=== PATIENT | female | born 1975 | race Caucasian/White ===

== ENCOUNTER 2016-08-17 15:06 | Emergency (ER) | payer OTHER ==
[2016-08-17] MEDS ORDERED: methylPREDNISolone INJ 125 MG/2 ML VIAL (J2930) As Ordered ONE (15:35)
[2016-08-17] MEDS ORDERED: IPRATROPIUM 0.5MG/ALBUTEROL 2.5MG INH SOL UD 3ML (DUONEB)(J7620) As Ordered ONE (15:44)
--- NOTE | 2016-08-17 16:11 | REP ---
Clinical: Chest pain. COPD. . Comparison: 04/17/2016 . Technique: PA and lateral. Findings: The mediastinum and cardiac silhouette are normal. The lung simmons are clear and without acute consolidation, effusion, or pneumothorax. The skeletal structures are intact and normal. Impression: 1. No acute cardiopulmonary process. Signed by Armani Trammell MD 08/17/2016 04:03 P
--- NOTE | 2016-08-17 16:45 | EDDOCDS ---
Nurse's Notes [facility] Name: Alisson Beth Age: 40 yrs Sex: Female : 1975 Arrival Date: 08/17/2016 Time: 15:06 Bed PD Private MD: Diagnosis: Chronic obstructive pulmonary disease with (acute) exacerbation;Shortness of breath;Wheezing Presentation: 08/17 15:12 Red Flag criteria, patient assessed and is suitable to finish the RCE Process. srm 15:22 Presenting complaint: Patient states: she has COPD breathing difficulty since [facility] yesterday. Cough with thick clear phlegm. Adult Sepsis Screening: The patient does not have new or worsening altered mentation. Patient's respiratory rate is less than 22. Systolic blood pressure is greater than 100. Patient has a qSOFA score of 0- Negative Sepsis Screen. Suicide/Homicide risk assessment- the patient denies having any suicidal and/or homicidal ideations and does not present with any other emotional, behavioral or mental health complaints. Status: Patient is not a counseling services director or dependent. Transition of care: patient was not received from another setting of care. 15:22 Acuity: LUCIANA Level 3 [facility] 15:22 Method Of Arrival: Walkin/Carried/Asstd [facility] Triage Assessment: 15:25 General: Appears well nourished, Behavior is anxious. Pain: Location: back and neck [facility] Pain currently is 7 out of 10 on a pain scale. Pt Declines HIV testing. Neurological: Level of Consciousness is awake, alert. EENT: Reports nasal congestion. Respiratory: Onset: The symptoms/episode began/occurred yesterday, Airway is patent Respiratory effort is labored, Reports shortness of breath cough that is wheezing. Derm: Skin is dry, Skin is pale, Skin temperature is warm. 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 albuterol sulfate 90 mcg/actuation Inhl HFAA 2 puffs every 4 hours as needed (Last dose: 08/17/2016 14:25) - PMHx: COPD; - PSHx: none; - Social history: Smoking status: Patient states former smoker of tobacco. No barriers to communication noted, The patient speaks fluent Guyanese. - Family history: Not pertinent. - : The pt / caregiver states he / she is not on anticoagulants. Home medication list is obtained from the patient. - Exposure Risk Screening:: None identified. Screenin:41 Screening information is obtained from the patient. Fall risk: No risks identified. cj Assistance ADL's: requires no assistance with activities of daily living. Abuse/DV Screen: The patient / caregiver reports he/she is: not in a situation that causes fear, pain or injury. Nutritional screening: No deficits noted. Advance Directives: There is no active DNR order. home support is adequate. Assessment: 15:41 General: Appears in no apparent distress, Behavior is cooperative, pleasant. Pain: [facility] Denies pain. Neurological: Level of Consciousness is awake, alert, Oriented to person, place, time. Cardiovascular: Rhythm is regular Chest pain is denied. Respiratory: Airway is patent Respiratory effort is even, labored, Respiratory pattern is regular, symmetrical, Breath sounds with wheezes bilaterally. Derm: Skin is pink, warm & dry. 16:28 Respiratory: Breath sounds with wheezes expiratory bilaterally. srm 16:28 Respiratory: Parent/caregiver reports the patient having feeling much better after nebs.srm 16:43 Reassessment: Patient appears in no apparent distress at this time. Patient states srm feeling better. Patient states symptoms have improved. Vital Signs: 15:08 BP 134 / 82; Pulse 121; Resp 16; Temp 99.0(O); Pulse Ox 96% on R/A; Weight 81.65 kg lr2 (R); Height 5 ft. 5 in. (165.10 cm) (R); Pain 6/10; 16:43 BP 132 / 85; Pulse 86; Resp 18; Temp 99.2; Pulse Ox 95% ; srm 15:08 Body Mass Index 29.95 (81.65 kg, 165.10 cm) lr2 Vitals: 15:08 Log In Time: August 17, 2016 at 15:06. lr2 ED Course: 15:08 Patient visited by Adia Daniels. lr2 15:08 Patient moved to Waiting lr2 15:08 Patient moved to Pre RCE lr2 15:24 Triage Initiated kpj 15:27 Patient moved to Triage 3 kpj 15:28 [facility] dt4 15:28 Bassam Guevara MD is Attending Physician. dt4 15:28 Patient visited by Lucita Renteria PA-C. dt4 15:34 Patient moved to PD [facility] 15:41 The patient / caregiver is instructed regarding the plan of care and ED course. [facility] 15:55 [facility] Payment Agreement was scanned into [employer] and attached to record. lg 16:29 Patient visited by Ysabel Mtz RN. srm 16:34 Patient visited by Lucita Renteria PA-C. dt4 16:36 Javi Feliz is Referral Physician. dt4 16:36 [facility] is Referral Physician. dt4 16:43 No IV's were initiated during this patient's visit. No procedures done that require srm assistance. Administered Medications: 15:40 Drug: Albuterol-Ipratropium 1 neb [ipratropium-albuterol 0.5 mg-3 mg(2.5 mg base)/3 mL ac1 nebulization soln (1 neb)] Route: Nebulizer; 15:45 Follow up: [facility] 15:41 Drug: methylPREDNISolone Sodium Succinate 125 mg Route: IM; Site: right gluteus; [facility] 15:50 Drug: Albuterol-Ipratropium 1 neb [ipratropium-albuterol 0.5 mg-3 mg(2.5 mg base)/3 mL ac1 nebulization soln (1 neb)] Route: Nebulizer; 15:55 Follow up: [facility] 16:00 Drug: Albuterol-Ipratropium 1 neb [ipratropium-albuterol 0.5 mg-3 mg(2.5 mg base)/3 mL ac1 nebulization soln (1 neb)] Route: Nebulizer; 16:05 Follow up: [facility] ac Intake: Order Results: There are currently no results for this order. Outcome: 16:36 Discharge ordered by Provider. dt4 16:43 Discharge Assessment: Patient awake, alert and oriented x 3. No cognitive and/or srm functional deficits noted. Patient verbalized understanding of disposition instructions. patient administered narcotics - no. The following High Risk Discharge criteria are identified: None. Discharged to home ambulatory. Condition: good Condition: stable. Discharge instructions given to patient, Instructed on discharge instructions, follow up and referral plans. medication usage, Demonstrated understanding of instructions, medications, Pt was receptive of discharge instructions/ teaching. Prescriptions given X 2. No special radiology studies were completed. Property sent home with patient. 16:44 Patient left the ED. srm Signatures: Devika Dowling, RN RN Ysabel Thornton, RN RN Vero Ortiz, Reg Reg lg Emre,Wendy,RT RT ac1 Yoli Lawton RN RN Lucita Lopez PA-C PA-Federico dt4 Adia Dnaiels lr2 MTDD
--- NOTE | 2016-08-17 16:45 | EDDOCDS ---
Physician Documentation [facility] Name: Alisson Beth Age: 40 yrs Sex: Female : 1975 Arrival Date: 08/17/2016 Time: 15:06 Bed PD Private MD: Disposition: 08/17/16 16:36 Discharged to Home/Self Care. Impression: Chronic obstructive pulmonary disease with (acute) exacerbation, Shortness of breath, Wheezing. - Condition is Stable. - Discharge Instructions: Chronic Obstructive Pulmonary Disease, Shortness of Breath. - Prescriptions for Prednisone 20 mg Oral Tablet - take 3 tablets by ORAL route once daily for 4 days start on 08/18/16; 12 tablet. ipratropium- albuterol 0.5 mg-3 mg(2.5 mg base)/3 mL Inhalation Solution for Nebulization - inhale 1 ampule by INHALATION route 3-4 times daily As needed; 1 box. - Medication Reconciliation, Local Pharmacy Hours form. - Follow up: Emergency Department; When: As needed; Reason: Worsening of conditions. Follow up: Javi Feliz; When: Call to arrange an appointment; Reason: Wound/Symptom Recheck, Further diagnostic work-up, Recheck today's complaints, Continuance of care, To establish care. [facility]; When: Call to arrange an appointment; Reason: Recheck today's complaints, Continuance of care, To establish care. - Problem is new. - Symptoms have improved. Historical: - Allergies: No known drug Allergies; - Home Meds: 1. albuterol sulfate 90 mcg/actuation Inhl HFAA 2 puffs every 4 hours as needed (Last dose: 08/17/2016 14:25) - PMHx: COPD; - PSHx: none; - Social history: Smoking status: Patient states former smoker of tobacco. No barriers to communication noted, The patient speaks fluent Vietnamese. - Family history: Not pertinent. - : The pt / caregiver states he / she is not on anticoagulants. Home medication list is obtained from the patient. - Exposure Risk Screening:: None identified. CERT OCCUPATIONAL THERAPY ASST: 08/17 15:25 LMP 07/28/2016 [facility] Vital Signs: 15:08 BP 134 / 82; Pulse 121; Resp 16; Temp 99.0(O); Pulse Ox 96% on R/A; Weight 81.65 kg / lr2 180.01 lbs (R); Height 5 ft. 5 in. (165.10 cm) (R); Pain 6/10; 16:43 BP 132 / 85; Pulse 86; Resp 18; Temp 99.2; Pulse Ox 95% ; srm 15:08 Body Mass Index 29.95 (81.65 kg, 165.10 cm) lr2 MDM: 15:32 methylPREDNISolone Sodium Succinate 125 mg IM once ordered. dt4 15:32 Albuterol-Ipratropium 1 neb Nebulizer every 20 minutes x3 ordered. dt4 15:32 Call Respiratory ordered. dt4 15:39 Financial registration complete. ks16 15:40 Call Respiratory complete. [facility] 15:48 Chest, 2 View (pa\E\lat) Ordered. [facility] 15:55 [facility] Payment Agreement was scanned into [employer] and attached to record. lg Administered Medications: 15:40 Drug: Albuterol-Ipratropium 1 neb [ipratropium-albuterol 0.5 mg-3 mg(2.5 mg base)/3 mL ac1 nebulization soln (1 neb)] Route: Nebulizer; 15:45 Follow up: [facility] 15:41 Drug: methylPREDNISolone Sodium Succinate 125 mg Route: IM; Site: right gluteus; [facility] 15:50 Drug: Albuterol-Ipratropium 1 neb [ipratropium-albuterol 0.5 mg-3 mg(2.5 mg base)/3 mL ac1 nebulization soln (1 neb)] Route: Nebulizer; 15:55 Follow up: [facility] 16:00 Drug: Albuterol-Ipratropium 1 neb [ipratropium-albuterol 0.5 mg-3 mg(2.5 mg base)/3 mL ac1 nebulization soln (1 neb)] Route: Nebulizer; 16:05 Follow up: [facility] Signatures: Dispatcher [employer] EDIN Devika Dowling RN RN kpj Michelson, Staci, RN RN srm Ganter, LoriLee, Reg Reg lg Yoli Lawton RN RN [facility] Lucita Renteria PA-C PA-C dt4 Monica John, Reg Reg ks16 Wendy Andrea RT ac1 The chart was reviewed and I authenticate all verbal orders and agree with the evaluation and treatment provided.Attachments: 15:55 [facility] Payment Agreement lg MTDD
--- NOTE | 2016-08-19 17:45 | EDDOCDS ---
Physician Documentation [facility] Name: Alisson Beth Age: 40 yrs Sex: Female : 1975 Arrival Date: 08/17/2016 Time: 15:06 Bed PD Private MD: Disposition: 08/17/16 16:36 Discharged to Home/Self Care. Impression: Chronic obstructive pulmonary disease with (acute) exacerbation, Shortness of breath, Wheezing. - Condition is Stable. - Discharge Instructions: Chronic Obstructive Pulmonary Disease, Shortness of Breath. - Prescriptions for Prednisone 20 mg Oral Tablet - take 3 tablets by ORAL route once daily for 4 days start on 08/18/16; 12 tablet. ipratropium- albuterol 0.5 mg-3 mg(2.5 mg base)/3 mL Inhalation Solution for Nebulization - inhale 1 ampule by INHALATION route 3-4 times daily As needed; 1 box. - Medication Reconciliation, Local Pharmacy Hours form. - Follow up: Emergency Department; When: As needed; Reason: Worsening of conditions. Follow up: Javi Feliz; When: Call to arrange an appointment; Reason: Wound/Symptom Recheck, Further diagnostic work-up, Recheck today's complaints, Continuance of care, To establish care. [facility]; When: Call to arrange an appointment; Reason: Recheck today's complaints, Continuance of care, To establish care. - Problem is new. - Symptoms have improved. Historical: - Allergies: No known drug Allergies; - Home Meds: 1. albuterol sulfate 90 mcg/actuation Inhl HFAA 2 puffs every 4 hours as needed (Last dose: 08/17/2016 14:25) - PMHx: COPD; - PSHx: none; - Social history: Smoking status: Patient states former smoker of tobacco. No barriers to communication noted, The patient speaks fluent Pashto. - Family history: Not pertinent. - : The pt / caregiver states he / she is not on anticoagulants. Home medication list is obtained from the patient. - Exposure Risk Screening:: None identified. 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 5 in. (165.10 cm) (R); Pain 6/10; 16:43 BP 132 / 85; Pulse 86; Resp 18; Temp 99.2; Pulse Ox 95% ; srm 15:08 Body Mass Index 29.95 (81.65 kg, 165.10 cm) lr2 MDM: 15:32 methylPREDNISolone Sodium Succinate 125 mg IM once ordered. dt4 15:32 Albuterol-Ipratropium 1 neb Nebulizer every 20 minutes x3 ordered. dt4 15:32 Call Respiratory ordered. dt4 15:39 Financial registration complete. ks16 15:40 Call Respiratory complete. [facility] 15:48 Chest, 2 View (pa\E\lat) Ordered. [facility] 15:55 [facility] Payment Agreement was scanned into [employer] and attached to record. 21:38 T-Sheet-- Draft Copy was scanned into [employer] and attached to record. klr Administered Medications: 15:40 Drug: Albuterol-Ipratropium 1 neb [ipratropium-albuterol 0.5 mg-3 mg(2.5 mg base)/3 mL ac1 nebulization soln (1 neb)] Route: Nebulizer; 15:45 Follow up: [facility] 15:41 Drug: methylPREDNISolone Sodium Succinate 125 mg Route: IM; Site: right gluteus; [facility] 15:50 Drug: Albuterol-Ipratropium 1 neb [ipratropium-albuterol 0.5 mg-3 mg(2.5 mg base)/3 mL ac1 nebulization soln (1 neb)] Route: Nebulizer; 15:55 Follow up: [facility] 16:00 Drug: Albuterol-Ipratropium 1 neb [ipratropium-albuterol 0.5 mg-3 mg(2.5 mg base)/3 mL ac1 nebulization soln (1 neb)] Route: Nebulizer; 16:05 Follow up: [facility] Signatures: Dispatcher [employer] EDAR Devika Dowling RN RN kpj Michelson, Staci, RN RN srm Ganter, LoriLee, Feliz Reg lg Yoli Lawton RN RN Lucita Lopez PA-C PARochelle dt4 Monica John, Reg Reg ks16 Bella Caceres Amy RT ac1 The chart was reviewed and I authenticate all verbal orders and agree with the evaluation and treatment provided.Attachments: 15:55 [facility] Payment Agreement lg 21:38 T-Sheet-- Draft Copy klr Chart Complete MTDD
--- NOTE | 2016-08-19 17:45 | EDDOCDS ---
Physician Documentation [facility] Name: Alisson Beth Age: 40 yrs Sex: Female : 1975 Arrival Date: 08/17/2016 Time: 15:06 Bed PD Private MD: Disposition: 08/17/16 16:36 Discharged to Home/Self Care. Impression: Chronic obstructive pulmonary disease with (acute) exacerbation, Shortness of breath, Wheezing. - Condition is Stable. - Discharge Instructions: Chronic Obstructive Pulmonary Disease, Shortness of Breath. - Prescriptions for Prednisone 20 mg Oral Tablet - take 3 tablets by ORAL route once daily for 4 days start on 08/18/16; 12 tablet. ipratropium- albuterol 0.5 mg-3 mg(2.5 mg base)/3 mL Inhalation Solution for Nebulization - inhale 1 ampule by INHALATION route 3-4 times daily As needed; 1 box. - Medication Reconciliation, Local Pharmacy Hours form. - Follow up: Emergency Department; When: As needed; Reason: Worsening of conditions. Follow up: Javi Feliz; When: Call to arrange an appointment; Reason: Wound/Symptom Recheck, Further diagnostic work-up, Recheck today's complaints, Continuance of care, To establish care. [facility]; When: Call to arrange an appointment; Reason: Recheck today's complaints, Continuance of care, To establish care. - Problem is new. - Symptoms have improved. Historical: - Allergies: No known drug Allergies; - Home Meds: 1. albuterol sulfate 90 mcg/actuation Inhl HFAA 2 puffs every 4 hours as needed (Last dose: 08/17/2016 14:25) - PMHx: COPD; - PSHx: none; - Social history: Smoking status: Patient states former smoker of tobacco. No barriers to communication noted, The patient speaks fluent Armenian. - Family history: Not pertinent. - : The pt / caregiver states he / she is not on anticoagulants. Home medication list is obtained from the patient. - Exposure Risk Screening:: None identified. 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 5 in. (165.10 cm) (R); Pain 6/10; 16:43 BP 132 / 85; Pulse 86; Resp 18; Temp 99.2; Pulse Ox 95% ; srm 15:08 Body Mass Index 29.95 (81.65 kg, 165.10 cm) lr2 MDM: 15:32 methylPREDNISolone Sodium Succinate 125 mg IM once ordered. dt4 15:32 Albuterol-Ipratropium 1 neb Nebulizer every 20 minutes x3 ordered. dt4 15:32 Call Respiratory ordered. dt4 15:39 Financial registration complete. ks16 15:40 Call Respiratory complete. [facility] 15:48 Chest, 2 View (pa\E\lat) Ordered. [facility] 15:55 [facility] Payment Agreement was scanned into [employer] and attached to record. 21:38 T-Sheet-- Draft Copy was scanned into [employer] and attached to record. klr Administered Medications: 15:40 Drug: Albuterol-Ipratropium 1 neb [ipratropium-albuterol 0.5 mg-3 mg(2.5 mg base)/3 mL ac1 nebulization soln (1 neb)] Route: Nebulizer; 15:45 Follow up: [facility] 15:41 Drug: methylPREDNISolone Sodium Succinate 125 mg Route: IM; Site: right gluteus; [facility] 15:50 Drug: Albuterol-Ipratropium 1 neb [ipratropium-albuterol 0.5 mg-3 mg(2.5 mg base)/3 mL ac1 nebulization soln (1 neb)] Route: Nebulizer; 15:55 Follow up: [facility] 16:00 Drug: Albuterol-Ipratropium 1 neb [ipratropium-albuterol 0.5 mg-3 mg(2.5 mg base)/3 mL ac1 nebulization soln (1 neb)] Route: Nebulizer; 16:05 Follow up: [facility] Signatures: Dispatcher [employer] EDKY Devika Dowling RN RN kpj Michelson, Staci, RN RN srm Ganter, LoriLee, Feliz Reg lg Yoli Lawton RN RN Lucita Lopez PA-C PARochelle dt4 Monica John, Reg Reg ks16 Bella Caceres Amy RT ac1 The chart was reviewed and I authenticate all verbal orders and agree with the evaluation and treatment provided.Attachments: 15:55 [facility] Payment Agreement lg 21:38 T-Sheet-- Draft Copy klr Chart Complete MTDD
--- NOTE | 2016-08-19 17:45 | EDDOCDS ---
Nurse's Notes [facility] Name: Alisson Beth Age: 40 yrs Sex: Female : 1975 Arrival Date: 08/17/2016 Time: 15:06 Bed PD Private MD: Diagnosis: Chronic obstructive pulmonary disease with (acute) exacerbation;Shortness of breath;Wheezing Presentation: 08/17 15:12 Red Flag criteria, patient assessed and is suitable to finish the RCE Process. srm 15:22 Presenting complaint: Patient states: she has COPD breathing difficulty since [facility] yesterday. Cough with thick clear phlegm. Adult Sepsis Screening: The patient does not have new or worsening altered mentation. Patient's respiratory rate is less than 22. Systolic blood pressure is greater than 100. Patient has a qSOFA score of 0- Negative Sepsis Screen. Suicide/Homicide risk assessment- the patient denies having any suicidal and/or homicidal ideations and does not present with any other emotional, behavioral or mental health complaints. 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 Transition of care: patient was not received from another setting of care. 15:22 Acuity: LUCIANA Level 3 [facility] 15:22 Method Of Arrival: Walkin/Carried/Asstd [facility] Triage Assessment: 15:25 General: Appears well nourished, Behavior is anxious. Pain: Location: back and neck [facility] Pain currently is 7 out of 10 on a pain scale. Pt Declines HIV testing. Neurological: Level of Consciousness is awake, alert. EENT: Reports nasal congestion. Respiratory: Onset: The symptoms/episode began/occurred yesterday, Airway is patent Respiratory effort is labored, Reports shortness of breath cough that is wheezing. Derm: Skin is dry, Skin is pale, Skin temperature is warm. 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 albuterol sulfate 90 mcg/actuation Inhl HFAA 2 puffs every 4 hours as needed (Last dose: 08/17/2016 14:25) - PMHx: COPD; - PSHx: none; - Social history: Smoking status: Patient states former smoker of tobacco. No barriers to communication noted, The patient speaks fluent Chinese. - Family history: Not pertinent. - : The pt / caregiver states he / she is not on anticoagulants. Home medication list is obtained from the patient. - Exposure Risk Screening:: None identified. Screenin:41 Screening information is obtained from the patient. Fall risk: No risks identified. cj Assistance ADL's: requires no assistance with activities of daily living. Abuse/DV Screen: The patient / caregiver reports he/she is: not in a situation that causes fear, pain or injury. Nutritional screening: No deficits noted. Advance Directives: There is no active DNR order. home support is adequate. Assessment: 15:41 General: Appears in no apparent distress, Behavior is cooperative, pleasant. Pain: [facility] Denies pain. Neurological: Level of Consciousness is awake, alert, Oriented to person, place, time. Cardiovascular: Rhythm is regular Chest pain is denied. Respiratory: Airway is patent Respiratory effort is even, labored, Respiratory pattern is regular, symmetrical, Breath sounds with wheezes bilaterally. Derm: Skin is pink, warm & dry. 16:28 Respiratory: Breath sounds with wheezes expiratory bilaterally. srm 16:28 Respiratory: Parent/caregiver reports the patient having feeling much better after nebs.srm 16:43 Reassessment: Patient appears in no apparent distress at this time. Patient states srm feeling better. Patient states symptoms have improved. Vital Signs: 15:08 BP 134 / 82; Pulse 121; Resp 16; Temp 99.0(O); Pulse Ox 96% on R/A; Weight 81.65 kg lr2 (R); Height 5 ft. 5 in. (165.10 cm) (R); Pain 6/10; 16:43 BP 132 / 85; Pulse 86; Resp 18; Temp 99.2; Pulse Ox 95% ; srm 15:08 Body Mass Index 29.95 (81.65 kg, 165.10 cm) lr2 Vitals: 15:08 Log In Time: August 17, 2016 at 15:06. lr2 ED Course: 15:08 Patient visited by Adia Daniels. lr2 15:08 Patient moved to Waiting lr2 15:08 Patient moved to Pre RCE lr2 15:24 Triage Initiated kpj 15:27 Patient moved to Triage 3 kpj 15:28 Lucita Renteria PA-C [facility]. dt4 15:28 Bassam Guevara MD is Attending Physician. dt4 15:28 Patient visited by Lucita Renteria PA-C. dt4 15:34 Patient moved to PD [facility] 15:41 The patient / caregiver is instructed regarding the plan of care and ED course. [facility] 15:55 [facility] Payment Agreement was scanned into [employer] and attached to record. lg 16:29 Patient visited by Ysabel Mtz RN. srm 16:34 Patient visited by Lucita Renteria PA-C. dt4 16:36 Javi Feliz is Referral Physician. dt4 16:36 [facility] is Referral Physician. dt4 16:43 No IV's were initiated during this patient's visit. No procedures done that require [facility] assistance. 16:47 Chest, 2 View (pa\E\lat) Returned. EDNH 21:38 T-Sheet-- Draft Copy was scanned into [employer] and attached to record. klr Administered Medications: 15:40 Drug: Albuterol-Ipratropium 1 neb [ipratropium-albuterol 0.5 mg-3 mg(2.5 mg base)/3 mL ac1 nebulization soln (1 neb)] Route: Nebulizer; 15:45 Follow up: [facility] located within [facility] 15:41 Drug: methylPREDNISolone Sodium Succinate 125 mg Route: IM; Site: right gluteus; [facility] 15:50 Drug: Albuterol-Ipratropium 1 neb [ipratropium-albuterol 0.5 mg-3 mg(2.5 mg base)/3 mL ac1 nebulization soln (1 neb)] Route: Nebulizer; 15:55 Follow up: [facility] located within [facility] 16:00 Drug: Albuterol-Ipratropium 1 neb [ipratropium-albuterol 0.5 mg-3 mg(2.5 mg base)/3 mL ac1 nebulization soln (1 neb)] Route: Nebulizer; 16:05 Follow up: [facility] Intake: Order Results: Radiology Order: Chest, 2 View (pa\E\lat) Test: Chest, 2 View (pa\E\lat) REASON FOR EXAMINATION: AFTER NEBS PLEASE;Shortness of Breath; Clinical: Chest pain. COPD. .; ; Comparison: 04/17/2016 .; ; Technique: PA and lateral.; ; Findings:; The mediastinum and cardiac silhouette are normal. The lung simmons are clear and; without acute consolidation, effusion, or pneumothorax. The skeletal structures; are intact and normal.; ; Impression:; 1. No acute cardiopulmonary process.; ; ; Signed by; Armani Trammell MD 08/17/2016 04:03 P; Outcome: 16:36 Discharge ordered by Provider. dt4 16:43 Discharge Assessment: Patient awake, alert and oriented x 3. No cognitive and/or srm functional deficits noted. Patient verbalized understanding of disposition instructions. patient administered narcotics - no. The following High Risk Discharge criteria are identified: None. Discharged to home ambulatory. Condition: good Condition: stable. Discharge instructions given to patient, Instructed on discharge instructions, follow up and referral plans. medication usage, Demonstrated understanding of instructions, medications, Pt was receptive of discharge instructions/ teaching. Prescriptions given X 2. No special radiology studies were completed. Property sent home with patient. 16:44 Patient left the ED. srm Signatures: Dispatcher [employer] EDNH Devika Dowling RN RN Ysabel Thornton, RN RN srm Vero Boyd, Reg Reg lg Emre,Wendy,RT RT ac1 Yoli Lawton,RN RN Lucita Lopez, HEATH JOE dt4 Bella Caceres Laura lr2 Chart Complete MTDD
== END 2016-08-17 16:44 | disposition home or self-care (01) ==
LOC: M ED 15:06
DX: J44.1 Chronic obstructive pulmonary disease with (acute) exacerbation (principal); Z87.891 Personal history of nicotine dependence
CPT/HCPCS: 71020; 94640; 96372; 99283; J2930

== ENCOUNTER 2016-09-08 09:32 | Emergency (ER) | payer OTHER ==
[~2016-09-08] VITALS: Ht 165.1 cm; Wt 77.1 kg
[2016-09-08 09:33] VITALS: BP 158/96
[2016-09-08] MEDS ORDERED: IPRASOL4 NEB (09:49)
[2016-09-08] MEDS ORDERED: predniSONE 50 MG TAB PO ONE (10:30)
[2016-09-08] MEDS: IPRATROPIUM 0.5MG/ALBUTEROL 2.5MG INH SOL UD 3ML (DUONEB)(J7620) NEB ONE (10:34)
[2016-09-08] MEDS: ALBUTEROL SULFATE 2.5 MG/0.5 ML INH NEB SOLN NEB ONE (10:34)
[2016-09-08] MEDS: predniSONE 20 MG TAB PO ONE (11:15)
[2016-09-08] MEDS ORDERED: ALBU83IN INH (11:17)
[2016-09-08] MEDS ORDERED: PRED10TA PO (11:18)
== END 2016-09-08 11:28 | disposition home or self-care (01) ==
LOC: M ED 10:44
DX: J44.1 Chronic obstructive pulmonary disease with (acute) exacerbation (principal)

== ENCOUNTER 2016-09-26 22:28 | Emergency (ER) | payer OTHER ==
[~2016-09-26] VITALS: Ht 165.1 cm; Wt 79.4 kg
[~2016-09-26 22:28] MED LIST: ALBU83IN INH; IPRASOL4 NEB; PRED10TA PO
[2016-09-27 00:44] LABS: BASO % 0.4 % (0.0-1.0); EOS # 0.3 K/mm3 (0.0-0.50); EOS % 2.8 % (0.0-3.0); LARGE UNSTAINED CELL # 0.1 K/mm3 (0.0-0.4); LARGE UNSTAINED CELL % 0.9 % (0.0-4.0); LYMPH # 0.5 K/mm3 (1.5-4.5); LYMPH % 4.5 % (24.0-44.0); MEAN CORPUSCULAR HEMOGLOBIN 31.2 pg (27.0-33.0); MEAN CORPUSCULAR HGB CONC 34.5 g/dl (32.0-36.5); MEAN CORPUSCULAR VOLUME 90.4 fl (80.0-96.0); MONO # 0.5 K/mm3 (0.0-0.8); MONO % 5.4 % (0.0-5.0); NEUTROPHILS # 7.9 K/mm3 (1.8-7.7); PLATELET COUNT, AUTOMATED 229 k/mm3 (150-450); RED CELL DISTRIBUTION WIDTH 12.5 % (11.5-14.5); WHITE BLOOD COUNT 9.1 K/mm3 (4.0-10.0)
[2016-09-27] MEDS ORDERED: IPRATROPIUM 0.5MG/ALBUTEROL 2.5MG INH SOL UD 3ML (DUONEB)(J7620) As Ordered ONE ×2 (00:54→01:27)
[2016-09-27 00:59] LABS: ABG BASE EXCESS -1.4 (-2.0-2.0); ABG HCO3 21.1 MEQ/L (22.0-26.0); ABG PARTIAL PRESSURE CO2 29.6 mmHg (35.0-45.0); ABG PARTIAL PRESSURE O2 63.3 mmHg (75.0-100.0); ABG STANDARD HCO3 23.3 MEQ/L (22.0-26.0)
[2016-09-27 01:01] LABS: ANION GAP 6 MEQ/L (8-16); BLOOD UREA NITROGEN 6 MG/DL (7-18); CALCIUM LEVEL 8.9 MG/DL (8.5-10.1); CARBON DIOXIDE LEVEL 24 MEQ/L (21-32); CHLORIDE LEVEL 107 MEQ/L (98-107); CREATININE FOR GFR 0.75 MG/DL (0.55-1.02); GLOMERULAR FILTRATION RATE > 60.0 (>58); GLUCOSE, FASTING 98 MG/DL (70-105); POTASSIUM SERUM 3.6 MEQ/L (3.5-5.1); SODIUM LEVEL 137 MEQ/L (136-145)
[2016-09-27] MEDS ORDERED: dexameTHASONE 20 MG/5 ML VIAL (J1100) IV ONE (01:15)
[2016-09-27] MEDS: IPRATROPIUM 0.5MG/ALBUTEROL 2.5MG INH SOL UD 3ML (DUONEB)(J7620) NEB SCH ×2 (01:28→01:31)
[2016-09-27] MEDS ORDERED: PRED20TA PO (04:12)
[2016-09-27 04:32] VITALS: BP 142/91
--- NOTE | 2016-09-27 08:07 | REP ---
PA and lateral chest: Comparisons 08/17/2016. The lung simmons are clear. The cardiac size is normal The freda, mediastinum, and bony thorax are unremarkable. Impression: Negative PA and lateral chest. There is no interval change. Signed by Gibson Soliz MD 09/27/2016 07:57 A
--- NOTE | 2016-09-27 21:43 | ECGEPIP ---
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
== END 2016-09-27 04:36 | disposition home or self-care (01) ==
LOC: M ED 23:29
DX: J44.1 Chronic obstructive pulmonary disease with (acute) exacerbation (principal); Z87.891 Personal history of nicotine dependence
CPT/HCPCS: 36415; 36600; 71020; 80048; 82550; 82553; 82803; 83880; 85025; 93005; 93041; 94640; 96374; 99285; J1100

== ENCOUNTER → 2017-01-02 | Outpatient (CLI) | payer MEDICAID, OTHER, SELFPAY ==
[~2017-01-02] MED LIST changes: +FLUO20CA8 PO; +METHACHOLINE KIT (J7674) INH ONE; -PRED10TA PO; +PRED10TA2 PO; +PRED20TA PO; +RANI150T; +XANA1TAB2 PO
[2017-01-02 09:10] LABS: ABG pH (ARTERIAL) 7.457 UNITS (7.350-7.450)
[2017-01-02 09:11] LABS: ABG BASE EXCESS 1.6 (-2.0-2.0); ABG HCO3 25.1 MEQ/L (22.0-26.0); ABG PARTIAL PRESSURE CO2 36.4 mmHg (35.0-45.0); ABG PARTIAL PRESSURE O2 77.3 mmHg (75.0-100.0); ABG STANDARD HCO3 25.9 MEQ/L (22.0-26.0); ABG TOTAL CO2 26.3 MEQ/L (22.0-29.0)
--- NOTE | 2017-01-02 09:48 | PFTRPT ---
Tech: Agustina CHAVES RRT Age: 41 Sex: Female Race: Height: 65.00 Inches Weight: 170.00 Lbs BSA: 1.85 Diagnosis: R06.00 METHACHOLINE CHALLENGE REPORT: ORDERING PROVIDER: Koby Feliz M.D. DATE OF SERVICE: 01/02/17 INTERPRETATION: The study was of excellent technical quality. Under protocol, methacholine was administered. At a dose of 0.25 mg (1.375 CDUs), a 64% decline in the FEV1 was noted. The PC20 of 0.03 is significant. Flow rates returned to better than baseline post bronchodilator administration. IMPRESSION: Positive methacholine challenge study. MTDD
--- NOTE | 2017-01-02 09:51 | PFTRPT ---
Tech: Agustina CHAVES RRT Age: 41 Sex: Female Race: Height: 65.00 Inches Weight: 170.00 Lbs BSA: 1.85 Diagnosis: R06.00 PULMONARY FUNCTION REPORT ORDERING PROVIDER: Koby Feliz M.D. DATE OF SERVICE: 01/02/17 SPIROMETRY: Excellent technical quality. The forced vital capacity is normal. The FEV1 is out of proportion. The obstructive index is, therefore, reduced. FLOW VOLUME LOOP: The expiratory limb of the flow volume loop is consistent with airflow limitation. LUNG VOLUMES: The total lung capacity is elevated. The residual volume is consistent with air trapping. DIFFUSION CAPACITY: The diffusion capacity is elevated. HEMOGLOBIN: The hemoglobin is acceptable at 16.7. AIRWAY MECHANICS: Airways resistance is elevated with a concomitant decrease in airway conductance. IMPRESSION: Mild obstructive ventilatory impairment with air trapping and elevated diffusion capacity. Please correlate clinically. MTDD
== END ==
LOC: M CARPUL 07:34
PROVIDERS: ATTEND Internal Medicine Pulmonary Disease
DX: R06.00 Dyspnea, unspecified (principal)

== ENCOUNTER → 2017-03-19 | Outpatient (REF) | payer OTHER ==
[~2017-03-19] MED LIST changes: -METHACHOLINE KIT (J7674) INH ONE
[2017-03-19 20:36] LABS: HCG, SERUM QUANTITATIVE 92698 MIU/ML
[2017-03-19 21:01] LABS: MEAN CORPUSCULAR HEMOGLOBIN 31.4 pg (27.0-33.0); MEAN CORPUSCULAR HGB CONC 34.6 g/dl (32.0-36.5); MEAN CORPUSCULAR VOLUME 90.7 fl (80.0-96.0); RED CELL DISTRIBUTION WIDTH 13.2 % (11.5-14.5); WHITE BLOOD COUNT 9.6 10^3/uL (4.0-10.0)
[2017-03-21 10:41] LABS: HBsAg Prenatal NEGATIVE (NEGATIVE)
== END ==
LOC: M LAB REF 16:32
PROVIDERS: ATTEND Obstetrics & Gynecology
DX: O36.80X0 Pregnancy with inconclusive fetal viability, not applicable or unspecified (principal); Z3A.00 Weeks of gestation of pregnancy not specified

== ENCOUNTER 2017-03-29 14:45 | Emergency (ER) | payer OTHER ==
[~2017-03-29] VITALS: Ht 165.1 cm; Wt 75.9 kg
[~2017-03-29 14:45] MED LIST changes: -FLUO20CA8 PO; -RANI150T; -XANA1TAB2 PO
[2017-03-29] MEDS ORDERED: RANI150T (14:52)
[2017-03-29] MEDS ORDERED: XANA1TAB2 PO (14:53)
[2017-03-29] MEDS ORDERED: FLUO20CA8 PO (14:53)
[2017-03-29] MEDS ORDERED: NS 500 ML IV ONE (15:30)
[2017-03-29] MEDS ORDERED: ALBUTEROL SULFATE 2.5 MG/0.5 ML INH NEB SOLN NEB ONE (15:30)
[2017-03-29] MEDS ORDERED: methylPREDNISolone INJ 125 MG/2 ML VIAL (J2930) IV ONE (15:30)
--- NOTE | 2017-03-29 15:55 | REP ---
Chest two views HISTORY: Cough Comparison: 09/27/2016 The lungs are clear. The heart is normal in size. The pulmonary vasculature is normal in appearance. The bony structure is intact. IMPRESSION: No acute disease. Signed by Antonio Crouch MD 03/29/2017 03:47 P
[2017-03-29 16:28] LABS: BASO # 0.1 10^3/uL (0.0-0.2); BASO % 0.4 % (0.0-1.0); EOS # 0.3 10^3/uL (0.0-0.50); IMMATURE GRANULOCYTE % 0.4 % (0-0); LYMPH # 1.7 10^3/uL (1.5-4.5); LYMPH % 12.7 % (24.0-44.0); MEAN CORPUSCULAR HEMOGLOBIN 31.3 pg (27.0-33.0); MEAN CORPUSCULAR HGB CONC 35.4 g/dl (32.0-36.5); MEAN CORPUSCULAR VOLUME 88.5 fl (80.0-96.0); NEUTROPHILS # 10.6 10^3/uL (1.8-7.7); NEUTROPHILS % 77.5 % (36.0-66.0); PLATELET COUNT, AUTOMATED 331 10^3/uL (150-450); RED CELL DISTRIBUTION WIDTH 12.9 % (11.5-14.5); WHITE BLOOD COUNT 13.7 10^3/uL (4.0-10.0)
[2017-03-29 16:34] LABS: ADD MORPHOLOGY? NO
[2017-03-29 16:52] LABS: ANION GAP 8 MEQ/L (8-16); BLOOD UREA NITROGEN 5 MG/DL (7-18); CARBON DIOXIDE LEVEL 22 MEQ/L (21-32); CHLORIDE LEVEL 110 MEQ/L (98-107); CREATININE FOR GFR 0.59 MG/DL (0.55-1.02); GLOMERULAR FILTRATION RATE > 60.0 (>58); GLUCOSE, FASTING 86 MG/DL (70-105); POTASSIUM SERUM 3.4 MEQ/L (3.5-5.1); SODIUM LEVEL 140 MEQ/L (136-145)
[2017-03-29] MEDS ORDERED: MAG SULF 1GM/100ML (MAG RUN) 1 GM in APPROPRIATE DILUENT 1 EA IV ONE (17:00)
[2017-03-29] MEDS ORDERED: LEVALBUTEROL 1.25 MG/0.5 ML CONCENTRATE NEB NEB ONE (17:45)
[2017-03-29 18:36] LABS: ABG BASE EXCESS -5.8 (-2.0-2.0); ABG HCO3 16.5 MEQ/L (22.0-26.0); ABG PARTIAL PRESSURE CO2 24.9 mmHg (35.0-45.0); ABG PARTIAL PRESSURE O2 81.8 mmHg (75.0-100.0); ABG STANDARD HCO3 19.8 MEQ/L (22.0-26.0); ABG TOTAL CO2 17.3 MEQ/L (22.0-29.0); ABG pH (ARTERIAL) 7.439 UNITS (7.350-7.450)
[2017-03-29 18:54] LABS: INR 0.93
[2017-03-29 18:57] VITALS: BP 135/84
[2017-03-29] MEDS ORDERED: ISOVUE-370 76% 100ML VIAL (Q9967) As Ordered ONE (19:10)
--- NOTE | 2017-03-29 19:50 | REPUSA ---
History: shortness of breath Comparison: No prior CTA of the chest available Technique: A CT-pulmonary angiogram was performed. A dose of intravenous contrast was administered. A xial images were displayed, as were sagittal and coronal reconstructions. Findings: No CT evidence of pulmonary embolism is identified. There is no evidence of thoracic aortic aneurysm or dissection. No air space consolidation is identified in the lungs. There is no evidence of pulmonary edema. No pa thologically enlarged hilar or mediastinal lymph nodes are identified. No significant pleural or kathryn cardial fluid collection is seen. There is no evidence of pneumothorax. The included portion of the upper abdomen does not show significant abnormality. Impression: No evidence of pulmonary embolism is identified.
[2017-03-29] MEDS ORDERED: PRED20TA PO (20:07)
[2017-03-29 20:10] VITALS: O2SAT 93
--- NOTE | 2017-03-31 05:27 | ECGEPIP ---
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
== END 2017-03-29 20:19 | disposition home or self-care (01) ==
LOC: M ED 14:45
DX: O99.511 Diseases of the respiratory system complicating pregnancy, first trimester (principal); J44.0 Chronic obstructive pulmonary disease with (acute) lower respiratory infection; J44.1 Chronic obstructive pulmonary disease with (acute) exacerbation; J30.2 Other seasonal allergic rhinitis; O99.341 Other mental disorders complicating pregnancy, first trimester; F41.9 Anxiety disorder, unspecified; Z3A.08 8 weeks gestation of pregnancy; Z79.899 Other long term (current) drug therapy
CPT/HCPCS: 36600; 71020; 71275; 80048; 82803; 85025; 85610; 85730; 93000; 94640; 96374; 99284; J2930; J3475; Q9967

== ENCOUNTER 2018-03-28 23:52 | Inpatient (IN) | payer OTHER ==
[2018-03-29] MEDS ORDERED: IPRATROPIUM 0.5MG/ALBUTEROL 2.5MG INH SOL UD 3ML (DUONEB)(J7620) NEB (00:30)
[2018-03-29 00:37] LABS: BASO # 0.1 10^3/uL (0.0-0.2); BASO % 0.5 % (0.0-1.0); EOS # 0.4 10^3/uL (0.0-0.50); EOS % 3.1 % (0.0-3.0); HEMATOCRIT 39.6 % (36.0-47.0); HEMOGLOBIN 13.6 g/dl (12.0-15.5); IMMATURE GRANULOCYTE % 0.4 % (0-3.0); LYMPH # 1.3 10^3/uL (1.5-4.5); LYMPH % 10.3 % (24.0-44.0); MEAN CORPUSCULAR HEMOGLOBIN 30.6 pg (27.0-33.0); MEAN CORPUSCULAR HGB CONC 34.3 g/dl (32.0-36.5); MEAN CORPUSCULAR VOLUME 89.2 fl (80.0-96.0); MONO # 1.1 10^3/uL (0.0-0.8); MONO % 8.3 % (0.0-5.0); NEUTROPHILS % 77.4 % (36.0-66.0); PLATELET COUNT, AUTOMATED 288 10^3/uL (150-450); RED BLOOD COUNT 4.44 10^6/uL (4.00-5.40); RED CELL DISTRIBUTION WIDTH 12.7 % (11.5-14.5)
[2018-03-29 01:21] LABS: ALBUMIN 3.6 GM/DL (3.2-5.2); ALBUMIN/GLOBULIN RATIO 1.09 (1.00-1.93); ALKALINE PHOSPHATASE 59 U/L (45-117); ALT/SGPT 38 U/L (12-78); ANION GAP 8 MEQ/L (8-16); AST/SGOT 33 U/L (7-37); BILIRUBIN,DIRECT < 0.1 MG/DL (0.0-0.2); BILIRUBIN,TOTAL 0.2 MG/DL (0.2-1.0); BLOOD UREA NITROGEN 7 MG/DL (7-18); CALCIUM LEVEL 8.4 MG/DL (8.5-10.1); CARBON DIOXIDE LEVEL 27 MEQ/L (21-32); CHLORIDE LEVEL 108 MEQ/L (98-107); CPK CREATINE PHOSPHOKINASE 181 U/L (26-192); CREATININE FOR GFR 0.66 MG/DL (0.55-1.30); GLOMERULAR FILTRATION RATE > 60.0 (>58); GLUCOSE, FASTING 90 MG/DL (70-100); MB/CK RELATIVE INDEX 1.82 (< OR =4); NT-PRO BNP 108 PG/ML (<125); POTASSIUM SERUM 3.5 MEQ/L (3.5-5.1); SODIUM LEVEL 143 MEQ/L (136-145); TOTAL PROTEIN 6.9 GM/DL (6.4-8.2); TROPONIN I < 0.02 NG/ML (< 0.10)
[2018-03-29] MEDS ORDERED: ISOVUE-370 76% 100ML VIAL (Q9967) As Ordered (01:37)
[2018-03-29] MEDS ORDERED: ACETAMINOPHEN TAB 650MG DOSE (2X325MG) PO (02:30)
[2018-03-29] MEDS: predniSONE 20 MG TAB PO ×2 (02:39→08:15)
[2018-03-29] MEDS ORDERED: ALPRAZolam 0.5 MG TAB PO (02:45)
[2018-03-29] MEDS: IPRATROPIUM 0.5MG/ALBUTEROL 2.5MG INH SOL UD 3ML (DUONEB)(J7620) NEB (07:21)
[2018-03-29] MEDS: FLUoxetine 20 MG CAP PO (08:15)
[2018-03-29] MEDS: AZITHROMYCIN 250 MG TAB PO (08:15)
== END 2018-03-29 11:50 | disposition home or self-care (01) | DRG 141 ==
LOC: M ED 23:52 → M ED INP 03-29 02:27 → M PED 03-29 04:45
DX: J45.901 Unspecified asthma with (acute) exacerbation (principal); F32.9 Major depressive disorder, single episode, unspecified; F41.9 Anxiety disorder, unspecified; Z79.899 Other long term (current) drug therapy; Z79.51 Long term (current) use of inhaled steroids

== ENCOUNTER 2018-10-01 16:31 | Emergency (ER) | payer OTHER ==
[~2018-10-01] VITALS: Ht 165.1 cm; Wt 75.9 kg
[~2018-10-01 16:31] MED LIST changes: +AZIT-12 PO; +FLUO20CA8 PO; +IPRA0.00 NEB; -IPRASOL4 NEB; +RANI150T; +VENTAER INH; +XANA1TAB2 PO
[2018-10-01] MEDS ORDERED: AMOX500C (16:38)
[2018-10-01] MEDS ORDERED: IPRATROPIUM 0.5MG/ALBUTEROL 2.5MG INH SOL UD 3ML (DUONEB)(J7620) NEB ONE (16:45)
[2018-10-01] MEDS ORDERED: ALBUTEROL SULFATE 2.5 MG/0.5 ML INH NEB SOLN INH ONE (16:45)
[2018-10-01 17:06] LABS: VENOUS BASE EXCESS -2.5 (-2.0-2.0); VENOUS HCO3 24.1 MEQ/L (23.0-27.0); VENOUS O2 SATURATION 69.1 % (60.0-80.0); VENOUS PARTIAL PRESSURE CO2 48.5 mmHg (38.0-50.0); VENOUS PARTIAL PRESSURE O2 37.4 mmHg (30.0-50.0); VENOUS PH 7.315 UNITS (7.330-7.430); VENOUS STANDARD HCO3 21.7 MEQ/L; VENOUS TOTAL CO2 25.6 MEQ/L (24.0-28.0)
--- NOTE | 2018-10-01 17:07 | REP ---
Oral chest x-ray: Single view. History: Dyspnea. Comparison study: March 29, 2017. Findings: The lungs are symmetrically aerated and free of infiltrate. Pleural angles are sharp. EKG electrodes are seen. The heart size is normal. Pulmonary vasculature is not increased. There is a mild scoliosis in the thoracic spine unchanged. Impression: No active disease. Electronically Signed by Ezra Nicholson MD 10/01/2018 04:59 P
[2018-10-01 17:18] LABS: BASO # 0.1 10^3/uL (0.0-0.2); BASO % 1.2 % (0.0-1.0); EOS # 0.6 10^3/uL (0.0-0.50); EOS % 8.9 % (0.0-3.0); LYMPH # 1.7 10^3/uL (1.5-4.5); LYMPH % 26.2 % (24.0-44.0); MEAN CORPUSCULAR HEMOGLOBIN 30.2 pg (27.0-33.0); MEAN CORPUSCULAR HGB CONC 34.1 g/dl (32.0-36.5); MEAN CORPUSCULAR VOLUME 88.5 fl (80.0-96.0); MONO # 0.9 10^3/uL (0.0-0.8); MONO % 13.9 % (0.0-5.0); NEUTROPHILS # 3.3 10^3/uL (1.8-7.7); NEUTROPHILS % 49.5 % (36.0-66.0); PLATELET COUNT, AUTOMATED 433 10^3/uL (150-450); RED BLOOD COUNT 4.97 10^6/uL (4.00-5.40); WHITE BLOOD COUNT 6.6 10^3/uL (4.0-10.0)
[2018-10-01 17:40] LABS: ALBUMIN 3.6 GM/DL (3.2-5.2); ALT/SGPT 65 U/L (12-78); BILIRUBIN,DIRECT 0.1 MG/DL (0.0-0.2); BILIRUBIN,TOTAL 0.4 MG/DL (0.2-1.0); BLOOD UREA NITROGEN 8 MG/DL (7-18); CALCIUM LEVEL 8.9 MG/DL (8.5-10.1); CARBON DIOXIDE LEVEL 24 MEQ/L (21-32); CHLORIDE LEVEL 111 MEQ/L (98-107); CPK CREATINE PHOSPHOKINASE 169 U/L (26-192); CREATININE FOR GFR 0.73 MG/DL (0.55-1.30); GLOMERULAR FILTRATION RATE > 60.0 (>58); GLUCOSE, FASTING 109 MG/DL (70-100); MB/CK RELATIVE INDEX 3.25 (< OR =4); POTASSIUM SERUM 4.4 MEQ/L (3.5-5.1); SODIUM LEVEL 141 MEQ/L (136-145); TOTAL PROTEIN 7.1 GM/DL (6.4-8.2); TROPONIN I < 0.02 NG/ML (< 0.10)
[2018-10-01 17:50] LABS: INFLUENZA A AMPLIFICATION NEGATIVE (NEGATIVE); INFLUENZA B AMPLIFICATION NEGATIVE (NEGATIVE)
[2018-10-01] MEDS ORDERED: PRED20TA PO (19:20)
[2018-10-01 19:29] VITALS: BP 113/82
[2018-10-02] MEDS ORDERED: ALBU83IN NEB (00:34)
--- NOTE | 2018-10-02 08:24 | ECGEPIP ---
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
== END 2018-10-01 19:35 | disposition home or self-care (01) ==
LOC: M ED 16:31 → EDBD 16:31 → M ED 19:35
DX: J44.1 Chronic obstructive pulmonary disease with (acute) exacerbation (principal); J45.909 Unspecified asthma, uncomplicated; F32.9 Major depressive disorder, single episode, unspecified; Z79.2 Long term (current) use of antibiotics; Z79.52 Long term (current) use of systemic steroids; Z79.51 Long term (current) use of inhaled steroids; Z79.899 Other long term (current) drug therapy

== ENCOUNTER 2019-03-24 04:26 | Inpatient (IN) | payer OTHER ==
[~2019-03-24] VITALS: Ht 165.1 cm; Wt 77.3 kg
[~2019-03-24 04:26] MED LIST changes: +ALBU83IN NEB; +AMOX500C
[2019-03-24] MEDS ORDERED: PROZ20CA11 PO (04:34)
[2019-03-24] MEDS ORDERED: dexameTHASONE 20 MG/5 ML VIAL (J1100) IV ONE (04:45)
[2019-03-24] MEDS ORDERED: ALBUTEROL SULFATE 2.5 MG/0.5 ML INH NEB SOLN NEB ONE (04:45)
[2019-03-24] MEDS ORDERED: MAGNESIUM *L&D* 4 GM/100 ML BAG (40MG/ML) (J3475) IV ONE (05:00)
[2019-03-24 05:05] LABS: BASO # 0.1 10^3/uL (0.0-0.2); BASO % 0.7 % (0.0-1.0); EOS # 0.9 10^3/uL (0.0-0.5); EOS % 7.4 % (0.0-3.0); HEMATOCRIT 46.4 % (36.0-47.0); HEMOGLOBIN 15.9 g/dl (12.0-15.5); LYMPH # 1.5 10^3/uL (1.5-5.0); LYMPH % 12.4 % (24.0-44.0); MEAN CORPUSCULAR HEMOGLOBIN 30.9 pg (27.0-33.0); MEAN CORPUSCULAR HGB CONC 34.3 g/dl (32.0-36.5); MEAN CORPUSCULAR VOLUME 90.1 fl (80.0-96.0); MONO # 1.1 10^3/uL (0.0-0.8); MONO % 8.9 % (0.0-5.0); NEUTROPHILS # 8.4 10^3/uL (1.5-8.5); NEUTROPHILS % 70.2 % (36.0-66.0); PLATELET COUNT, AUTOMATED 338 10^3/uL (150-450); RED BLOOD COUNT 5.15 10^6/uL (4.00-5.40); WHITE BLOOD COUNT 11.9 10^3/uL (4.0-10.0)
[2019-03-24 05:16] LABS: ABG BASE EXCESS -2.6 (-2.0-2.0); ABG HCO3 21.8 MEQ/L (22.0-26.0); ABG O2 SATURATION 96.2 % (95.0-99.0); ABG PARTIAL PRESSURE CO2 36.6 mmHg (35.0-45.0); ABG PARTIAL PRESSURE O2 79.6 mmHg (75.0-100.0); ABG STANDARD HCO3 22.3 MEQ/L (22.0-26.0); ABG TOTAL CO2 22.9 MEQ/L (22.0-29.0); ABG pH (ARTERIAL) 7.392 UNITS (7.350-7.450)
[2019-03-24 05:22] LABS: BLOOD UREA NITROGEN 6 MG/DL (7-18); CARBON DIOXIDE LEVEL 26 MEQ/L (21-32); CHLORIDE LEVEL 107 MEQ/L (98-107); GLOMERULAR FILTRATION RATE > 60.0 (>58); GLUCOSE, FASTING 114 MG/DL (70-100); POTASSIUM SERUM 4.4 MEQ/L (3.5-5.1); SODIUM LEVEL 141 MEQ/L (136-145)
[2019-03-24] MEDS: IPRATROPIUM 0.5MG/ALBUTEROL 2.5MG INH SOL UD 3ML (DUONEB)(J7620) NEB SCH ×5 (07:20→19:48)
[2019-03-24 07:43] LABS: CK-MB VALUE MASS 6.2 NG/ML (<3.6); CPK CREATINE PHOSPHOKINASE 198 U/L (26-192); MB/CK RELATIVE INDEX 3.13 (< OR =4); TROPONIN I < 0.02 NG/ML (< 0.10)
[2019-03-24] MEDS ORDERED: ALPRAZolam 0.5 MG TAB PO PRN (08:15)
[2019-03-24] MEDS ORDERED: IPRATROPIUM 0.5MG/ALBUTEROL 2.5MG INH SOL UD 3ML (DUONEB)(J7620) NEB PRN (08:15)
[2019-03-24] MEDS ORDERED: MAALOX 30 ML SUSP *UDC PO PRN (08:15)
--- NOTE | 2019-03-24 08:32 | ECGEPIP ---
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
[2019-03-24] MEDS ORDERED: DRIS50003 PO (08:33)
--- NOTE | 2019-03-24 08:38 | REP ---
Portable chest x-ray: Single view. History: Dyspnea. Comparison chest x-ray: October 01, 2018. Findings: EKG monitoring electrodes overlie the chest. The lungs are symmetrically inflated and clear. Pulmonary vasculature is not increased. Pleural angles are sharp. Cardiomediastinal silhouette is unremarkable. No bony abnormality is seen. Impression: Negative portable chest x-ray. Electronically Signed by Ezra Nicholson MD 03/24/2019 09:03 A
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
[2019-03-24] MEDS ORDERED: MOM 30ML SUSPENSION UDC PO PRN (09:00)
[2019-03-24] MEDS: FLUoxetine 20 MG CAP PO SCH (10:49)
[2019-03-24] MEDS: ENOXAPARIN 40 MG/0.4 ML SYRINGE (J1650) SC SCH (10:49)
[2019-03-24] MEDS: ACETAMINOPHEN TAB 650MG DOSE (2X325MG) PO PRN ×3 (10:49→21:08)
[2019-03-24] MEDS: methylPREDNISolone INJ 125 MG/2 ML VIAL (J2930) IV SCH ×3 (13:00→23:48)
[2019-03-24] MEDS: BUDESONIDE 0.5 MG/2 ML INHALATION SUSPENSION INH SCH (19:48)
[2019-03-24 22:00] VITALS: BP 146/82
[2019-03-24] MEDS: FORMOTEROL FUMARATE 20 MCG/2 ML INHALATION SOLUTION (PERFOROMIST) INH SCH (23:40)
[2019-03-25] MEDS: IPRATROPIUM 0.5MG/ALBUTEROL 2.5MG INH SOL UD 3ML (DUONEB)(J7620) NEB SCH ×4 (01:18→20:00)
[2019-03-25] MEDS: methylPREDNISolone INJ 125 MG/2 ML VIAL (J2930) IV SCH (05:00)
[2019-03-25 06:00] VITALS: BP 138/85
[2019-03-25] MEDS: BUDESONIDE 0.5 MG/2 ML INHALATION SUSPENSION INH SCH ×2 (07:16→20:00)
[2019-03-25] MEDS: FORMOTEROL FUMARATE 20 MCG/2 ML INHALATION SOLUTION (PERFOROMIST) INH SCH ×2 (07:18→20:00)
[2019-03-25] MEDS ORDERED: INFLUENZA QUADRIVALENT PF VACCINE 0.5ML SYRINGE (90686) IM ONE (09:00)
[2019-03-25] MEDS: FLUoxetine 20 MG CAP PO SCH (09:29)
[2019-03-25] MEDS: ENOXAPARIN 40 MG/0.4 ML SYRINGE (J1650) SC SCH (09:29)
--- NOTE | 2019-03-25 11:22 | IPNPDOC ---
Text Note Date of Service The patient was seen on 03/25/19. NOTE Subjective: Patient seen and examined at bedside. No acute overnight events reported. Patient feels much better, but notes tachycardia and WRIGHT. Objective: General: NAD, lying comfortably in bed HEENT: NC/AT, EOMI Lungs: mild diffuse expiratory wheezes Heart: +S1S2, RRR Abd: soft, NT, +BS Ext: no edema A/P: 43 yo female for asthma exacerbation #asthma exacerbation - taper steroids - nebs/IS #DVT prophylaxis Dispo: anticipate d/c in 24 hours VS,Fishbone, I+O VS, Fishbone, I+O Vital Signs Date Time Temp Pulse Resp B/P (MAP) Pulse Ox O2 Delivery O2 Flow Rate FiO2 03/25/19 06:00 96.7 91 18 138/85 (102) 93 03/24/19 11:56 Room Air I&O- Last 24 Hours up to 6 AM 03/25/19 06:00 Intake Total 1766 ml Balance 1766 ml JONATHAN SHELTON MD Mar 25, 2019 11:22
[2019-03-25] MEDS: predniSONE 20 MG TAB PO SCH (11:51)
[2019-03-25 14:00] VITALS: BP 135/92
[2019-03-25 22:00] VITALS: BP 144/94
[2019-03-26] MEDS: IPRATROPIUM 0.5MG/ALBUTEROL 2.5MG INH SOL UD 3ML (DUONEB)(J7620) NEB SCH ×2 (01:49→08:00)
[2019-03-26 06:00] VITALS: BP 132/89
[2019-03-26 06:22] LABS: HEMATOCRIT 42.9 % (36.0-47.0); HEMOGLOBIN 14.5 g/dl (12.0-15.5); MEAN CORPUSCULAR HEMOGLOBIN 30.5 pg (27.0-33.0); MEAN CORPUSCULAR HGB CONC 33.8 g/dl (32.0-36.5); MEAN CORPUSCULAR VOLUME 90.3 fl (80.0-96.0); PLATELET COUNT, AUTOMATED 365 10^3/uL (150-450); RED BLOOD COUNT 4.75 10^6/uL (4.00-5.40); WHITE BLOOD COUNT 13.9 10^3/uL (4.0-10.0)
[2019-03-26 06:48] LABS: BLOOD UREA NITROGEN 13 MG/DL (7-18); CALCIUM LEVEL 9.2 MG/DL (8.5-10.1); CARBON DIOXIDE LEVEL 27 MEQ/L (21-32); CHLORIDE LEVEL 106 MEQ/L (98-107); GLOMERULAR FILTRATION RATE > 60.0 (>58); GLUCOSE, FASTING 78 MG/DL (70-100); POTASSIUM SERUM 4.1 MEQ/L (3.5-5.1); SODIUM LEVEL 140 MEQ/L (136-145)
[2019-03-26] MEDS ORDERED: PRED10TA2 PO (08:35)
[2019-03-26] MEDS: ENOXAPARIN 40 MG/0.4 ML SYRINGE (J1650) SC SCH (09:00)
[2019-03-26] MEDS: FORMOTEROL FUMARATE 20 MCG/2 ML INHALATION SOLUTION (PERFOROMIST) INH SCH ×2 (09:02→20:42)
[2019-03-26] MEDS: BUDESONIDE 0.5 MG/2 ML INHALATION SUSPENSION INH SCH ×2 (09:02→20:43)
[2019-03-26] MEDS: predniSONE 20 MG TAB PO SCH (09:19)
[2019-03-26] MEDS: FLUoxetine 20 MG CAP PO SCH (09:19)
--- NOTE | 2019-03-26 10:56 | IPNPDOC ---
Text Note Date of Service The patient was seen on 03/26/19. NOTE Subjective: Patient seen and examined at bedside. No acute overnight events reported. Patient feels much better, but notes exertional tachycardia and WRIGHT. Objective: General: NAD, lying comfortably in bed HEENT: NC/AT, EOMI Lungs: diminished breath sounds, CTA B/L Heart: +S1S2, RRR Abd: soft, NT, +BS Ext: no edema A/P: 43 yo female for asthma exacerbation #asthma exacerbation - PO steroids - d/c duonebs, will consider xopenex given exertional tachycardia - nebs/IS #tachycardia - patient states this has been an ongoing issue - tachycardia with minimal exertion - checking echocardiogram, thyroid profile - d/c duonebs, resume xopenex if needed - telemetry monitoring #DVT prophylaxis Dispo: anticipate d/c in 24-48 hours VS,Fishbone, I+O VS, Fishbone, I+O Laboratory Tests 03/26/19 05:22 Red Blood Count 4.75, Mean Corpuscular Volume 90.3, Mean Corpuscular Hemoglobin 30.5, Mean Corpuscular Hemoglobin Concent 33.8, Red Cell Distribution Width 12.9, Calcium Level 9.2 Vital Signs Date Time Temp Pulse Resp B/P (MAP) Pulse Ox O2 Delivery O2 Flow Rate FiO2 03/26/19 06:00 97.7 74 16 132/89 (103) 94 03/24/19 11:56 Room Air I&O- Last 24 Hours up to 6 AM 03/26/19 05:59 Intake Total 1855 ml Output Total 0 ml Balance 1855 ml JONATHAN SHELTON MD Mar 26, 2019 10:56
[2019-03-26 11:30] LABS: FREE THYROXINE INDEX 3.2 % (1.3-4.8); MAGNESIUM LEVEL 1.9 MG/DL (1.8-2.4); PHOSPHORUS LEVEL 3.2 MG/DL (2.5-4.9); T UPTAKE 33 % (30-39); THYROID STIMULATING HORMONE 0.964 uIU/ML (0.358-3.740); THYROXINE (T4) 9.7 UG/DL (4.5-12.0)
[2019-03-26 14:00] VITALS: BP 151/93
[2019-03-26 22:00] VITALS: BP 149/71
[2019-03-27 05:50] LABS: HEMATOCRIT 43.5 % (36.0-47.0); MEAN CORPUSCULAR HEMOGLOBIN 31.3 pg (27.0-33.0); MEAN CORPUSCULAR HGB CONC 34.5 g/dl (32.0-36.5); MEAN CORPUSCULAR VOLUME 90.8 fl (80.0-96.0); PLATELET COUNT, AUTOMATED 329 10^3/uL (150-450); RED BLOOD COUNT 4.79 10^6/uL (4.00-5.40); WHITE BLOOD COUNT 9.4 10^3/uL (4.0-10.0)
[2019-03-27 06:00] VITALS: BP 133/87
[2019-03-27 06:21] LABS: ALBUMIN 3.2 GM/DL (3.2-5.2); ALT/SGPT 50 U/L (12-78); BILIRUBIN,TOTAL 0.3 MG/DL (0.2-1.0); BLOOD UREA NITROGEN 16 MG/DL (7-18); CALCIUM LEVEL 8.8 MG/DL (8.5-10.1); CARBON DIOXIDE LEVEL 25 MEQ/L (21-32); CHLORIDE LEVEL 109 MEQ/L (98-107); CREATININE FOR GFR 0.75 MG/DL (0.55-1.30); GLOMERULAR FILTRATION RATE > 60.0 (>58); GLUCOSE, FASTING 85 MG/DL (70-100); SODIUM LEVEL 140 MEQ/L (136-145); TOTAL PROTEIN 6.6 GM/DL (6.4-8.2)
[2019-03-27] MEDS: FORMOTEROL FUMARATE 20 MCG/2 ML INHALATION SOLUTION (PERFOROMIST) INH SCH (07:41)
[2019-03-27] MEDS: BUDESONIDE 0.5 MG/2 ML INHALATION SUSPENSION INH SCH (07:41)
[2019-03-27] MEDS: ENOXAPARIN 40 MG/0.4 ML SYRINGE (J1650) SC SCH (08:07)
[2019-03-27] MEDS: predniSONE 20 MG TAB PO SCH (08:07)
[2019-03-27] MEDS: FLUoxetine 20 MG CAP PO SCH (08:07)
--- NOTE | 2019-03-27 08:22 | ECHO ---
DATE OF SERVICE: 03/26/2019 DATE OF : 1975 AGE: 43 REFERRING PROVIDER: Dr. Antonio Butcher PATIENT LOCATION: Room 4218 REASON FOR THE STUDY: Cardiac dysrhythmias. 2-D MEASUREMENTS: IVS: 0.92 cm LV: 3.6 cm LVPW: 0.73 cm LA: 3.1 cm Aorta: 2.9 cm IVC: 1.0 cm DOPPLER MEASUREMENTS: Peak velocity across the aortic valve: 1.2 m/s Peak velocity across the LVOT: 0.72 m/s Mitral E: 0.95, Mitral A: 0.81 with a ratio of 1.2 Maximum tricuspid valve velocity: 2.4 m/s 2-D COMMENTS: 1. Normal left ventricular size, wall thickness, and normal global left ventricular systolic function. The estimated ventricular systolic ejection fraction is 60-65%. 2. Normal left atrium. Normal right atrium and right ventricle. 3. The atrial septum appeared to be normal without evidence of defect or shunt. 4. Normal aortic root. 5. No pericardial effusion seen. 6. Minimally calcified aortic valve with normal leaflet excursion. Normal mitral valve, tricuspid valve, and pulmonic valve. The proximal pulmonary artery branches were not well visualized. 7. The inferior vena cava was normal in size, central venous pressure is most likely normal. Doppler: No significant valvular abnormalities detected but trace tricuspid regurgitation. The calculated pulmonary systolic pressure is about 30-35 mmHg. Assessment of the ventricular diastolic function appeared to be normal. IMPRESSION: 1. Normal global left ventricular systolic and diastolic function. 2. Trace tricuspid radiation with probably mild pulmonary hypertension. 3. Aortic valve sclerosis without stenosis or aortic regurgitation.
== END 2019-03-27 11:18 | disposition home or self-care (01) | DRG 141 ==
LOC: M ED 04:26 → M ED INP 08:01 → M MSPAV 12:39
PROVIDERS: ADMIT Hospitalist; ATTEND Internal Medicine
DX: J45.901 Unspecified asthma with (acute) exacerbation (principal); F32.9 Major depressive disorder, single episode, unspecified; Z87.891 Personal history of nicotine dependence; Z79.899 Other long term (current) drug therapy; F41.9 Anxiety disorder, unspecified

== ENCOUNTER 2019-06-09 00:58 | Inpatient (IN) | payer OTHER ==
[~2019-06-09] VITALS: Ht 165.1 cm; Wt 85.4 kg
[~2019-06-09 00:58] MED LIST changes: +DRIS50003 PO; +FLUO20CA20 PO; -FLUO20CA8 PO; +PROZ20CA11 PO
[2019-06-09 01:48] LABS: BASO # 0.1 10^3/uL (0.0-0.2); BASO % 0.8 % (0.0-1.0); EOS % 8.5 % (0.0-3.0); HEMATOCRIT 50.8 % (36.0-47.0); HEMOGLOBIN 16.8 g/dl (12.0-15.5); LYMPH # 2.5 10^3/uL (1.5-5.0); LYMPH % 22.2 % (24.0-44.0); MEAN CORPUSCULAR HEMOGLOBIN 30.4 pg (27.0-33.0); MEAN CORPUSCULAR HGB CONC 33.1 g/dl (32.0-36.5); MONO # 1.3 10^3/uL (0.0-0.8); MONO % 11.6 % (0.0-5.0); NEUTROPHILS # 6.4 10^3/uL (1.5-8.5); NEUTROPHILS % 56.5 % (36.0-66.0); PLATELET COUNT, AUTOMATED 311 10^3/uL (150-450); RED BLOOD COUNT 5.52 10^6/uL (4.00-5.40); WHITE BLOOD COUNT 11.3 10^3/uL (4.0-10.0)
[2019-06-09 01:55] LABS: HCG, SERUM QUALITATIVE NEGATIVE (NEGATIVE)
[2019-06-09] MEDS ORDERED: IPRATROPIUM 0.5MG/ALBUTEROL 2.5MG INH SOL UD 3ML (DUONEB)(J7620) NEB PRN (02:00)
[2019-06-09] MEDS ORDERED: methylPREDNISolone INJ 125 MG/2 ML VIAL (J2930) IV ONE (02:00)
[2019-06-09 02:02] LABS: BLOOD UREA NITROGEN 10 MG/DL (7-18); CALCIUM LEVEL 9.6 MG/DL (8.5-10.1); CARBON DIOXIDE LEVEL 26 MEQ/L (21-32); CHLORIDE LEVEL 108 MEQ/L (98-107); CK-MB VALUE MASS 4.9 NG/ML (<3.6); CPK CREATINE PHOSPHOKINASE 250 U/L (26-192); CREATININE FOR GFR 0.86 MG/DL (0.55-1.30); GLOMERULAR FILTRATION RATE > 60.0 (>58); GLUCOSE, FASTING 97 MG/DL (70-100); MB/CK RELATIVE INDEX 1.96 (< OR =4); POTASSIUM SERUM 4.2 MEQ/L (3.5-5.1); SODIUM LEVEL 142 MEQ/L (136-145); TROPONIN I < 0.02 NG/ML (< 0.10)
[2019-06-09] MEDS ORDERED: LORazepam 2 MG/ML VIAL (J2060) IV ONE (02:15)
[2019-06-09] MEDS ORDERED: LORazepam 2 MG/ML VIAL (J2060) As Ordered ONE (02:22)
--- NOTE | 2019-06-09 03:22 | HPEPDOC ---
[facility] Medical History & Physical Date of Admission Jun 09, 2019 Date of Service: Jun 09, 2019 Primary Care Physician: Christiano Acuña Attending Physician: AARTI DARBY MD History and Physical TIME OF SERVICE: 3:45 AM CHIEF COMPLAINT: Shortness of breath HISTORY OF PRESENT ILLNESS: This is a 43-year-old female who presents with complaints of shortness of breath that began yesterday morning when she woke up. She reports being able to hear herself wheeze. The shortness of breath did not improve despite using her albuterol about 30 times. She is unsure what may have triggered this asthma exacerbation. She denies having any sick contacts. Associated symptoms include chills. She denies having a runny nose, fevers, nausea, or vomiting. REVIEW OF SYSTEMS: 12 point review of systems negative except as listed in HPI PAST MEDICAL/ SURGICAL HISTORY: COPD/asthma Anxiety/depression. Status post C-sections. Status post tonsillectomy SOCIAL HISTORY: She quit smoking 5 months ago. Prior to that she smoked for 33 years FAMILY HISTORY: Asthma Allergies ALLERGIES: Please see below. HOME MEDICATIONS: Please see below. PHYSICAL EXAMINATION: VITAL SIGNS: Please see below. GEN: well nourished / well developed/ NAD INTEGUMENT: she does not have facial plethora HEENT: normocephalic / atramatic / lips acyanotic/ mucus membranes moist and pink CVS: RRR/ radial pulses intact LUNGS: there is no nasal flairing /she is able to speak full sentences without stopping to take a breath / she is not using accessory muscles / there is decreased respiratory expansion/ she has and expiratory wheezing ABDOMEN: there are no masses or lesions / bowel sounds are present / the abdomen is soft & not tender with palpation MSK/EXTREMITIES: range of motion intact in all 4 extremities NEURO: CN 2-12 are grossly intact / speech is not dysarthric PSYCH: alert and oriented to person place and time/ able to understand and follow all commands LABORATORY DATA: See below. IMAGING: Chest x-ray appears unremarkable but the final read is pending MICROBIOLOGY: Please see below. ASSESSMENT: Ms. Beth is a 43-year-old female with a past medical history of asthma/COPD and anxiety / depression who will be admitted for management of acute asthma. PLAN: 1. Hypoxemia secondary to asthma exacerbation This episode may have triggered by labile weather recently. Her ABG showed mild hypoxemia. Her chest x-ray appears unremarkable. Received DuoNeb's Solu-Medrol and, magnesium sulfate in the ER Plan: Admit to medical floor ( Reason to admit: has had poor response to therapy in ER) / will ask RN to check peak flow / c/w supplemental O2 / continuous pulse ox / f/u respiratory panel/ Dunebs Q6H, levalbuterol Q24HP/ oral Prednisone w PPI / her PCP can refer her to a, [facility] repeat PFTs as she reports she has not had repeat testing for several years 2. Erythrocytosis Likely due to chronic hypoxia. The patient used to smoke. Plan: She can follow up with her PCP for repeat hemoglobin 3. SIRS. Likely reactive to acute asthma Unlikely sepsis because she does not appear toxic, lactic acid is within normal limits and there is no source of infection. Plan: Monitor vitals and Freddy BC count/follow-up final chest x-ray report and respiratory panel 4. Anxiety/ depression Plan: Resume Xanax and fluoxetine DVT PROPHYLAXIS:. Lovenox DISPOSITION: Likely home after more than 2 midnight's stay Vital Signs Vital Signs Date Time Temp Pulse Resp B/P (MAP) Pulse Ox O2 Delivery O2 Flow Rate FiO2 06/09/19 01:10 97.3 117 24 156/106 (123) 95 Room Air Laboratory Data Labs 24H Laboratory Tests 2 06/09/19 01:24: Immature Granulocyte % (Auto) 0.4, Neutrophils (%) (Auto) 56.5, Lymphocytes (%) (Auto) 22.2L, Monocytes (%) (Auto) 11.6H, Eosinophils (%) (Auto) 8.5H, Basophils (%) (Auto) 0.8, Neutrophils # (Auto) 6.4, Lymphocytes # (Auto) 2.5, Monocytes # (Auto) 1.3H, Eosinophils # (Auto) 1.0H, Basophils # (Auto) 0.1, Nucleated Red Blood Cells % (auto) 0.0, Anion Gap 8, Glomerular Filtration Rate > 60.0, Calcium Level 9.6, Total Creatine Kinase 250H, Creatine Kinase MB 4.9H, Creatine Kinase MB Relative Index 1.96, Troponin I < 0.02, Human Chorionic Gonadotropin, Qual NEGATIVE 06/09/19 01:41: Lactic Acid Level 1.7 CBC/BMP Laboratory Tests 06/09/19 01:24 Home Medications Scheduled Fluoxetine HCl (Prozac) 20 Mg Capsule, 20 MG PO DAILY Scheduled PRN Albuterol Sulfate (Ventolin Hfa) 108 Mcg/Act Aer, 2 PUFFS INH QID PRN for SHORTNESS OF BREATH Alprazolam (Xanax) 1 Mg Tab, 1 MG PO QID PRN for ANXIETY Allergies Coded Allergies: SEASONAL ALLERGIES (Verified Allergy, Unknown, 09/23/10) A-FIB/CHADSVASC A-FIB History Current/History of A-Fib/PAF?: No Current PO Anticoag Therapy: No AARTI DARBY MD Jun 09, 2019 03:22
[2019-06-09] MEDS ORDERED: MAALOX 30 ML SUSP *UDC PO PRN (03:30)
[2019-06-09] MEDS ORDERED: ALBUTEROL SULFATE 2.5 MG/0.5 ML INH NEB SOLN NEB PRN (03:30)
[2019-06-09] MEDS ORDERED: MAG SULF 1GM/100ML (MAG RUN) 1 GM in IV 1 EA IV ONE (03:30)
[2019-06-09] MEDS ORDERED: MOM 30ML SUSPENSION UDC PO PRN (03:30)
[2019-06-09 04:07] LABS: ABG BASE EXCESS -2.3 (-2.0-2.0); ABG HCO3 21.9 MEQ/L (22.0-26.0); ABG O2 SATURATION 93.9 % (95.0-99.0); ABG PARTIAL PRESSURE CO2 36.4 mmHg (35.0-45.0); ABG PARTIAL PRESSURE O2 66.6 mmHg (75.0-100.0); ABG STANDARD HCO3 22.5 MEQ/L (22.0-26.0); ABG TOTAL CO2 23.1 MEQ/L (22.0-29.0); ABG pH (ARTERIAL) 7.398 UNITS (7.350-7.450)
[2019-06-09 04:18] LABS: MAGNESIUM LEVEL 2.1 MG/DL (1.8-2.4); NT-PRO BNP 59 PG/ML (<125)
[2019-06-09] MEDS ORDERED: LEVALBUTEROL 1.25 MG/0.5 ML CONCENTRATE NEB INH PRN (05:00)
[2019-06-09] MEDS: IPRATROPIUM 0.5MG/ALBUTEROL 2.5MG INH SOL UD 3ML (DUONEB)(J7620) NEB SCH ×3 (08:00→20:30)
--- NOTE | 2019-06-09 08:10 | REP ---
Chest x-ray: Single view portable exam. History: Short of breath. Comparison study: March 24, 2019. Findings: EKG monitoring electrodes overlie the chest. The lungs are symmetrically aerated and clear. Heart is not enlarged. There is a mild S-shaped thoracic curvature unchanged. No other bony abnormality is seen. Pulmonary vasculature is not increased. Pleural angles are sharp. Impression: No active disease. Electronically Signed by Ezra Nicholson MD 06/09/2019 08:02 A
[2019-06-09] MEDS ORDERED: predniSONE 20 MG TAB PO SCH (09:00)
[2019-06-09] MEDS: ENOXAPARIN 40 MG/0.4 ML SYRINGE (J1650) SC SCH (09:00)
[2019-06-09] MEDS: DOCUSATE SODIUM 100 MG CAP PO SCH ×2 (09:28→20:00)
[2019-06-09] MEDS: PANTOPRAZOLE 40MG TAB (PROTONIX) PO SCH (09:28)
[2019-06-09] MEDS: FLUoxetine 20 MG CAP PO SCH (09:28)
[2019-06-09] MEDS: ACETAMINOPHEN TAB 650MG DOSE (2X325MG) PO PRN ×2 (09:31→18:15)
[2019-06-09] MEDS: ALPRAZolam 0.5 MG TAB PO PRN ×2 (09:31→20:00)
[2019-06-09 10:58] VITALS: BP 140/70
--- NOTE | 2019-06-09 12:31 | IPNPDOC ---
Text Note Date of Service The patient was seen on 06/09/19. NOTE Subjective: -Feels a little better, but was winded just getting up to put her phone on the rn telemetry. Objective: VITAL SIGNS: Please see below. GEN: well nourished / well developed/ NAD INTEGUMENT: she does not have facial plethora HEENT: normocephalic / atramatic / lips acyanotic/ mucus membranes moist and pink CVS: RRR/ radial pulses intact LUNGS: Tight, scattered wheezing without any crackles, othewise speaking in full sentences with no accessory muscle use ABDOMEN: there are no masses or lesions / bowel sounds are present / the abdomen is soft & not tender with palpation MSK/EXTREMITIES: range of motion intact in all 4 extremities NEURO: CN 2-12 are grossly intact / speech is not dysarthric PSYCH: alert and oriented to person place and time/ able to understand and follow all commands LABORATORY DATA: See below. IMAGING: Chest x-ray appears unremarkable MICROBIOLOGY: Please see below. ASSESSMENT: Ms. Beth is a 43-year-old female with asthma, COPD, anxiety and depression who was admitted for management of acute asthma/COPD exacerbation who continues to be tight and wheezing and will continue IV steroids. PLAN: 1. Hypoxemia secondary to asthma exacerbation: suspected to have been triggered by labile weather recently. -ABG showed mild hypoxemia. -chest x-ray was unremarkable. -c/w supplemental O2 -Duonebs Q6H -Levalbuterol Q4HP -Instead of PO pred, will continue IV steroids at this time with solumedrol 60 IV daily -Will recommend that her PCP refer her to commission broker for repeat PFTs as she reports she has not had repeat testing for several years 2. Erythrocytosis Likely due to chronic hypoxia. The patient used to smoke. -Monitor while inpatient 3. SIRS. Likely reactive to acute asthma Unlikely sepsis because she does not appear toxic, lactic acid is within normal limits and there is no source of infection. - Monitor vitals 4. Anxiety/ depression -continue home Xanax and fluoxetine DVT PROPHYLAXIS:. Lovenox Diet: regular DISPOSITION: Likely home after more than 2 midnight's stay VS,Fishbone, I+O VS, Fishbone, I+O Laboratory Tests 06/09/19 01:24 Vital Signs Date Time Temp Pulse Resp B/P (MAP) Pulse Ox O2 Delivery O2 Flow Rate FiO2 06/09/19 10:58 97.8 115 20 140/70 (93) 94 Room Air SAMMIE HERR MD Jun 09, 2019 12:31
[2019-06-09] MEDS ORDERED: methylPREDNISolone INJ 125 MG/2 ML VIAL (J2930) IV SCH (13:00)
[2019-06-09 16:20] VITALS: BP 162/96
[2019-06-09 18:00] VITALS: BP 150/82; O2SAT 94
[2019-06-09 22:00] VITALS: BP 168/104
[2019-06-09 22:53] VITALS: O2SAT 95
[2019-06-10 00:51] VITALS: BP 138/93
[2019-06-10 01:00] VITALS: BP 138/93
[2019-06-10] MEDS: IPRATROPIUM 0.5MG/ALBUTEROL 2.5MG INH SOL UD 3ML (DUONEB)(J7620) NEB SCH ×2 (01:52→07:33)
[2019-06-10 06:00] VITALS: BP 116/66
[2019-06-10 06:59] LABS: HEMATOCRIT 41.6 % (36.0-47.0); MEAN CORPUSCULAR HEMOGLOBIN 30.9 pg (27.0-33.0); MEAN CORPUSCULAR HGB CONC 34.4 g/dl (32.0-36.5); MEAN CORPUSCULAR VOLUME 89.8 fl (80.0-96.0); PLATELET COUNT, AUTOMATED 298 10^3/uL (150-450); RED BLOOD COUNT 4.63 10^6/uL (4.00-5.40); WHITE BLOOD COUNT 17.4 10^3/uL (4.0-10.0)
[2019-06-10 07:07] LABS: HEMOGLOBIN 14.3 g/dl (12.0-15.5)
[2019-06-10 07:12] LABS: BLOOD UREA NITROGEN 12 MG/DL (7-18); CALCIUM LEVEL 8.9 MG/DL (8.5-10.1); CARBON DIOXIDE LEVEL 23 MEQ/L (21-32); CHLORIDE LEVEL 109 MEQ/L (98-107); CREATININE FOR GFR 0.75 MG/DL (0.55-1.30); GLOMERULAR FILTRATION RATE > 60.0 (>58); GLUCOSE, FASTING 94 MG/DL (70-100); MAGNESIUM LEVEL 2.1 MG/DL (1.8-2.4); SODIUM LEVEL 140 MEQ/L (136-145)
[2019-06-10] MEDS ORDERED: PRED10TA2 PO (08:35)
[2019-06-10] MEDS ORDERED: ADV250INH INH (08:35)
[2019-06-10] MEDS: PANTOPRAZOLE 40MG TAB (PROTONIX) PO SCH (08:46)
[2019-06-10] MEDS: FLUoxetine 20 MG CAP PO SCH (08:46)
[2019-06-10] MEDS: ENOXAPARIN 40 MG/0.4 ML SYRINGE (J1650) SC SCH (08:48)
[2019-06-10] MEDS: DOCUSATE SODIUM 100 MG CAP PO SCH (08:48)
[2019-06-10 09:00] VITALS: O2SAT 94
[2019-06-10] MEDS ORDERED: predniSONE 20 MG TAB PO SCH (09:00)
[2019-06-10] MEDS ORDERED: AIRD1INH2 INH (11:20)
--- NOTE | 2019-06-10 11:25 | DS.PDOC ---
Discharge Summary General Date of Admission Jun 09, 2019 at 03:20 Date of Discharge 06/10/2019 Discharge Summary PROCEDURES PERFORMED DURING STAY: [None]. ADMITTING DIAGNOSES / DISCHARGE DIAGNOSES: Hypoxemia - likely 2/2 asthma exacerbation - likely 2/2 be triggered by labile weather recently s/p Erythrocytosis - possibly 2/2 Chronic hypoxia. SIRS - likely 2/2 reactive process 2/2 acute asthma Anxiety/ depression DVT prophylaxis COMPLICATIONS/CHIEF COMPLAINT: Shortness of breath HISTORY OF PRESENT ILLNESS: Patient is a 43-year-old female with past medical history of asthma, COPD, anxiety and depression who presented to the emergency room with complaints of shortness of breath and increased productive sputum. Patient reports that she's been having difficulty getting air and experience chest tightness. . She was admitted to the hospitalist service for further evaluation and treatment for suspected Asthma / COPD exacerbation HOSPITAL COURSE: Hypoxemia - likely 2/2 asthma exacerbation - likely 2/2 be triggered by labile weather recently - Clinically patient has reported significant improvement of her breathing - Patient has been taken off of supplemental oxygen and has been saturating well on room air - Auscultation does not reveal any significant wheezing - Chest x-ray does not reveal any evidence of infiltrates - Will discontinue Solu-Medrol and start prednisone and continue with a taper as an outpatient - c/w inhaled therapy as ordered; will prescribe inhaled corticosteroid and long-acting beta agonist upon discharge - Patient has been advised to follow-up with her primary care provider and Dr. Feliz within the next 7 days s/p Erythrocytosis - possibly 2/2 Chronic hypoxia. SIRS - likely 2/2 reactive process 2/2 acute asthma - Does not appear to have any signs of infection - Remains afebrile and hemodynamically stable Anxiety/ depression - c/w Fluoxetine and Alprazolam DVT prophylaxis - c/w Lovenox DISCHARGE MEDICATIONS: Please see below. ALLERGIES: Please see below. PHYSICAL EXAMINATION ON DISCHARGE: Vitals (See below) General: Lying in bed, no acute distress, comfortable, AAOx3 HEENT: NC, AT CVS: RRR, +S1S2 Lungs: Fair air entry b/l, there does not appear to be any appreciable wheezing, rhonchi or rales Abdomen: Soft, ND, NT Extremities: - Edema, - Calf tenderness LABORATORY DATA: Please see below. IMAGING: CXR 06/09: No active disease. ACTIVITY: [As tolerated]. DISCHARGE PLAN: Follow up with Dr. Acuña and Dr. Feliz within the next 7 days Remain compliant with treatment plan and medications Return to the ER if you experience any problems DISPOSITION: Home DISCHARGE CONDITION: [Stable]. TIME SPENT ON DISCHARGE: 36 minutes Vital Signs/I&Os Vital Signs Date Time Temp Pulse Resp B/P (MAP) Pulse Ox O2 Delivery O2 Flow Rate FiO2 06/10/19 06:00 97.6 86 16 116/66 (83) 94 Room Air I&O- Last 24 Hours up to 6 AM 06/10/19 06:00 Intake Total 1480 ml Balance 1480 ml Laboratory Data Labs 24H Laboratory Tests 2 06/10/19 06:01: Nucleated Red Blood Cells % (auto) 0.0, Anion Gap 8, Glomerular Filtration Rate > 60.0, Calcium Level 8.9, Magnesium Level 2.1 CBC/BMP Laboratory Tests 06/10/19 06:01 Microbiology Microbiology 06/09/19 Respiratory Virus Panel (PCR) (DIANE) - Final, Complete Discharge Medications Scheduled Fluoxetine HCl (Prozac) 20 Mg Capsule, 20 MG PO DAILY, (Reported) Prednisone (Prednisone) 10 Mg Tablet, 10 MG PO TAPER Take 4 tabs daily x 3 days, then 3 tabs daily x 3 days, then 2 tabs daily x 3 days, then 1 tab daily x 3 days and stop Salmeterol/Fluticasone (Advair 250-50 Diskus) 1 Each Blst.w.dev, 1 PUFF INH BID Scheduled PRN Albuterol Sulfate (Ventolin Hfa) 108 Mcg/Act Aer, 2 PUFFS INH QID PRN for SHORTNESS OF BREATH, (Reported) Alprazolam (Xanax) 1 Mg Tab, 1 MG PO QID PRN for ANXIETY, (Reported) Allergies Coded Allergies: SEASONAL ALLERGIES (Verified Allergy, Unknown, 09/23/10) NAS WYLIE MD Jun 10, 2019 11:25
--- NOTE | 2019-06-10 21:55 | ECGEPIP ---
[facility] - ED Test Date: 2019-06-09 Pat Name: MARISEL MCNULTY Department: Room: [place] [address] Gender: Female [employer] Fund[employer]: DAVID : [id number] Requested By: Bassam Whalen Order Number: [id number] Reading MD: Suniat Myers Measurements Intervals Renick Rate: 97 P: 66 ND: 141 QRS: 47 QRSD: 78 T: 66 QT: 341 QTc: 434 Interpretive Statements SINUS RHYTHM WITH SINUS ARRHYTHMIA LOW VOLTAGE LIMB PRWP SIMILAR 03/24/19 Electronically Signed on 06-10-2019 21:55:01 EST by Sunita Myers
== END 2019-06-10 11:24 | disposition home or self-care (01) | DRG 141 ==
LOC: M ED 00:58 → M ED INP 03:20 → M MSPAV 16:20
PROVIDERS: ADMIT Internal Medicine; ATTEND Internal Medicine
DX: J45.901 Unspecified asthma with (acute) exacerbation (principal); R65.10 Systemic inflammatory response syndrome (SIRS) of non-infectious origin without acute organ dysfunction; D75.1 Secondary polycythemia; R09.02 Hypoxemia; F32.9 Major depressive disorder, single episode, unspecified; F41.9 Anxiety disorder, unspecified; J30.2 Other seasonal allergic rhinitis; Z90.49 Acquired absence of other specified parts of digestive tract; Z87.891 Personal history of nicotine dependence; Z79.899 Other long term (current) drug therapy

== ENCOUNTER 2019-10-03 03:17 | Inpatient (IN) | payer OTHER ==
[~2019-10-03] VITALS: Ht 175.3 cm; Wt 95.1 kg
[2019-10-03] VITALS (14 sets, daily range): BP systolic 118–136; BP diastolic 78–88; O2SAT 92–97
[~2019-10-03 03:17] MED LIST changes: +ADV250INH INH; +AIRD1INH2 INH
[2019-10-03] MEDS ORDERED: methylPREDNISolone INJ 125 MG/2 ML VIAL (J2930) IV ONE (03:45)
[2019-10-03 03:53] LABS: VENOUS BASE EXCESS -5.4 (-2.0-2.0); VENOUS O2 SATURATION 99.2 % (60.0-80.0); VENOUS PARTIAL PRESSURE CO2 30.2 mmHg (38.0-50.0); VENOUS PARTIAL PRESSURE O2 160.4 mmHg (30.0-50.0); VENOUS PH 7.394 UNITS (7.330-7.430); VENOUS STANDARD HCO3 20.1 MEQ/L
[2019-10-03 04:01] LABS: BASO # 0.1 10^3/uL (0.0-0.2); BASO % 1.1 % (0.0-1.0); EOS # 0.8 10^3/uL (0.0-0.5); EOS % 10.1 % (0.0-3.0); HEMATOCRIT 44.3 % (36.0-47.0); HEMOGLOBIN 15.1 g/dl (12.0-15.5); LYMPH # 2.4 10^3/uL (1.5-5.0); LYMPH % 28.2 % (24.0-44.0); MEAN CORPUSCULAR HEMOGLOBIN 30.2 pg (27.0-33.0); MEAN CORPUSCULAR HGB CONC 34.1 g/dl (32.0-36.5); MEAN CORPUSCULAR VOLUME 88.6 fl (80.0-96.0); MONO % 11.7 % (0.0-5.0); NEUTROPHILS # 4.1 10^3/uL (1.5-8.5); NEUTROPHILS % 48.7 % (36.0-66.0); PLATELET COUNT, AUTOMATED 298 10^3/uL (150-450); WHITE BLOOD COUNT 8.3 10^3/uL (4.0-10.0)
[2019-10-03] MEDS ORDERED: LABETALOL HCL 100 MG/20 ML VIAL IV STA (04:01)
[2019-10-03 04:12] LABS: INR 0.96; PROTHROMBIN TIME 12.5 SECONDS (11.8-14.0)
[2019-10-03] MEDS: COMBIVENT RESPIMAT 100-20MCG INHALER 4GM INH PRN ×3 (04:16→05:48)
[2019-10-03 04:38] LABS: ALBUMIN 3.7 GM/DL (3.2-5.2); ALT/SGPT 49 U/L (12-78); BILIRUBIN,DIRECT < 0.1 MG/DL (0.0-0.2); BILIRUBIN,TOTAL 0.3 MG/DL (0.2-1.0); BLOOD UREA NITROGEN 11 MG/DL (7-18); CALCIUM LEVEL 9.7 MG/DL (8.5-10.1); CARBON DIOXIDE LEVEL 25 MEQ/L (21-32); CHLORIDE LEVEL 109 MEQ/L (98-107); CK-MB VALUE MASS 3.7 NG/ML (<3.6); CPK CREATINE PHOSPHOKINASE 156 U/L (26-192); CREATININE FOR GFR 0.75 MG/DL (0.55-1.30); GLOMERULAR FILTRATION RATE > 60.0 (>58); GLUCOSE, FASTING 95 MG/DL (70-100); MB/CK RELATIVE INDEX 2.37 (< OR =4); NT-PRO BNP 41 PG/ML (<125); POTASSIUM SERUM 4.2 MEQ/L (3.5-5.1); SODIUM LEVEL 141 MEQ/L (136-145); TOTAL PROTEIN 7.3 GM/DL (6.4-8.2); TROPONIN I < 0.02 NG/ML (< 0.10)
--- NOTE | 2019-10-03 05:54 | HPEPDOC ---
[facility] Medical History & Physical Date of Admission Oct 03, 2019 Date of Service: Oct 03, 2019 Primary Care Physician: Christiano Acuña Attending Physician: AARTI DARBY MD History and Physical TIME OF SERVICE 557PM CHIEF COMPLAINT: dyspnea HISTORY OF PRESENT ILLNESS: This is a 44 yr old F, that is well known to our service, presents w c/o of shortness of breath that begun yesterday and did not improve despite using her nebs more frequently and is associated with a fever of 100.1. She denies noticing any change in her chronic cough except for the fact that she produces "frothy" sputum after using her nebs. She denies having a runny nose, chest tightness, lower extremity swelling, n/v/d or leaving her house during the jail in place orders during the last few weeks. Her children who are teenagers have been more lax with the jail in place orders and come in and out of the house; she has been asking them to clean their hands when they come into the house. congestion REVIEW OF SYSTEMS: 12 point review of systems negative except as listed in HPI PAST MEDICAL/ SURGICAL HISTORY: COPD/Asthma Anxiety/depression Status post C-sections Status post tonsillectomy SOCIAL HISTORY: She quit smoking. Prior to that she smoked for 33 years FAMILY HISTORY: Asthma Allergies ALLERGIES: Please see below. HOME MEDICATIONS: Please see below. PHYSICAL EXAMINATION: Vital Signs Date Time Temp Pulse Resp B/P (MAP) Pulse Ox O2 Delivery O2 Flow Rate FiO2 10/03/19 03:17 97.6 81 20 188/101 99 Nasal Cannula 2.0 GEN: well nourished / well developed/ NAD INTEGUMENT: she does not have facial plethora HEENT:NCAT/ lips acyanotic/ mucus membranes moist and pink/ NC in place CVS: RRR LUNGS: he is able to speak full sentences without stopping to take a breath / she is not using accessory muscles / she has prominent expiratory wheezing MSK/EXTREMITIES: range of motion intact in all 4 extremities / no calf tenderness with palpation NEURO: CN 2-12 are grossly intact / speech is not dysarthric PSYCH: alert and oriented to person place and time/ able to understand and follow all commands LABORATORY DATA: Immature Granulocyte % (Auto) 0.2, Neutrophils (%) (Auto) 48.7, Lymphocytes (%) (Auto) 28.2, Monocytes (%) (Auto) 11.7H, Eosinophils (%) (Auto) 10.1H, Basophils (%) (Auto) 1.1H, Neutrophils # (Auto) 4.1, Lymphocytes # (Auto) 2.4, Monocytes # (Auto) 1.0H, Eosinophils # (Auto) 0.8H, Basophils # (Auto) 0.1, Nucleated Red Blood Cells % (auto) 0.0, Prothrombin Time 12.5, Prothromb Time International Ratio 0.96, Blood Gas Bicarbonate Standard 20.1, Venous Blood pH 7.394, Venous Blood Partial Pressure CO2 30.2L, Venous Blood Partial Pressure O2 160.4H, Venous Blood Total Carbon Dioxide 19.0L, Venous Blood HCO3 18.0L, Venous Blood Oxygen Saturation 99.2H, Venous Blood Base Excess -5.4L, Anion Gap 7L, Glomerular Filtration Rate > 60.0, Calcium Level 9.7, Total Bilirubin 0.3, Direct Bilirubin < 0.1, Aspartate Amino Transf (AST/SGOT) 28, Alanine Aminotransferase (ALT/SGPT) 49, Alkaline Phosphatase 54, Total Creatine Kinase 156, Creatine Kinase MB 3.7H, Creatine Kinase MB Relative Index 2.37, Troponin I < 0.02, NB-Ynr-[id number]-Type Natriuretic Peptide 41, Total Protein 7.3, Albumin 3.7, Albumin/Globulin Ratio 1.03, Thyroid Stimulating Hormone (TSH) 3.530 POC Lactate (Misc Panel) 1.07 IMAGING: Chest x-ray appears unremarkable but the final read is pending MICROBIOLOGY: 10/03/19 Blood Culture, Received Pending 10/03/19 Coronavirus COVID-19 PCR (DIANE), Received Pending 10/03/19 Respiratory Panel (PCR) - Final, Complete 10/03/19 Blood Culture, Received Pending ASSESSMENT: Ms. Beth is a 43-year-old female who is admitted for management of acute asthma/COPD. PLAN: 1. Asthma/COPD exacerbation The ABG respiratory panel LFTs CPK INR PT PTT and chest x-ray are unrevealing but COVID 19 is pending This episode may have triggered by labile weather recently. She DuoNeb's Solu-Medrol in the ER Plan: Admit to medical floor ( Reason to admit: has had poor response to therapy in ER) / give IV mag sulfate now / c/w supplemental O2 / continuous pulse ox / f/u COVID19 , procalcitonin, d-dimer, fibrinogen, LDH, CRP, sputum cx, final chest xray report / albuterol w ipatropium Q6H, levalbuterol Q4HP / start oral Prednisone w PPI tomorrow / her PCP can refer her to a, she shaper set up operator repeat PFTs as she reports she has not had repeat testing for several years DVT PROPHYLAXIS:. Lovenox DISPOSITION: Likely home after more than 2 midnight's stay Home Medications Scheduled PRN Acetaminophen (Tylenol Extra Strength) 500 Mg Tablet, 1,000 MG PO Q6H PRN for PAIN / FEVER Albuterol Sulfate (Ventolin Hfa) 108 Mcg/Act Aer, 2 PUFFS INH QID PRN for SHORTNESS OF BREATH Allergies Coded Allergies: SEASONAL ALLERGIES (Verified Allergy, Unknown, 09/23/10) A-FIB/CHADSVASC A-FIB History Current/History of A-Fib/PAF?: No Current PO Anticoag Therapy: No AARTI DARBY MD Oct 03, 2019 05:54
[2019-10-03] MEDS ORDERED: ALBUTEROL 90 MCG/ACT 8GM HFA INHALER INH PRN (06:00)
[2019-10-03] MEDS ORDERED: ACETAMINOPHEN TAB 650MG DOSE (2X325MG) PO PRN (06:00)
[2019-10-03] MEDS ORDERED: MAALOX 30 ML SUSP *UDC PO PRN (06:00)
[2019-10-03] MEDS ORDERED: ACET-897 PO (06:10)
[2019-10-03 06:11] LABS: D-DIMER QUANT 365.8 ng/ml (<500)
[2019-10-03] MEDS ORDERED: LEVALBUTEROL HFA 45MCG/ACT 15 GM INHALER INH PRN (06:30)
[2019-10-03 07:04] LABS: C REACTIVE PROTEIN QUANTITATIV < 0.30 MG/DL (0.00-0.30); FERRITIN 32 NG/ML (8-252); LDH LACTATE DEHYDROGENASE 179 U/L (84-246)
[2019-10-03] MEDS: COMBIVENT RESPIMAT 100-20MCG INHALER 4GM INH SCH ×3 (07:38→20:35)
--- NOTE | 2019-10-03 07:41 | REP ---
PORTABLE CHEST X-RAY: SINGLE VIEW. HISTORY: Dyspnea and cough. COMPARISON STUDY: June 09, 2019. FINDINGS: Monitoring electrodes are seen. The lungs are well inflated and clear. The pleural angles are sharp. Heart size is normal. There is a mild levoconvex curvature in the upper thoracic spine. No infiltrate is seen. No other bony abnormality. Pulmonary vasculature is not increased. IMPRESSION: No acute disease. Electronically Signed by Ezra Nicholson MD 10/03/2019 09:33 A
[2019-10-03] MEDS ORDERED: MAG SULF 1GM/100ML (MAG RUN) 1 GM in IV 1 EA IV ONE (08:00)
[2019-10-03] MEDS: predniSONE 20 MG TAB PO SCH (08:16)
[2019-10-03] MEDS: DOCUSATE SODIUM 100 MG CAP PO SCH ×2 (08:16→20:40)
[2019-10-03] MEDS: PANTOPRAZOLE 40MG TAB (PROTONIX) PO SCH (08:16)
[2019-10-03] MEDS: ENOXAPARIN 40 MG/0.4 ML SYRINGE (J1650) SC SCH (08:16)
--- NOTE | 2019-10-03 20:20 | IPNPDOC ---
Date Seen The patient was seen on 10/03/19. Progress Note SUBJECTIVE: Saturating well on 2 L NC, comfortable. New admit this AM. No acute complaints. OBJECTIVE: VITAL SIGNS: Please see below GEN: well nourished / well developed/ NAD INTEGUMENT: she does not have facial plethora HEENT:NCAT/ lips acyanotic/ mucus membranes moist and pink/ NC in place CVS: RRR LUNGS: he is able to speak full sentences without stopping to take a breath / she is not using accessory muscles / expiratory wheezing MSK/EXTREMITIES: range of motion intact in all 4 extremities / no calf tenderness with palpation NEURO: CN 2-12 are grossly intact / speech is not dysarthric PSYCH: alert and oriented to person place and time/ able to understand and follow all commands LABORATORY DATA: Please see below IMAGING: CXR: NAD MICROBIOLOGY: 10/03/19 Blood Culture, Received Pending 10/03/19 Coronavirus COVID-19 PCR (DIANE), Received Pending 10/03/19 Respiratory Panel (PCR) - Final, Complete 10/03/19 Blood Culture, Received Pending ASSESSMENT: Patient is a 43-year-old female admitted for treatment of acute asthma/COPD exacerbation, r/o COVID 19. PLAN: 1. Asthma/COPD exacerbation. On 2 L NC, c/w supplemental O2, duonebs ATC, albuterol PRN, steroids, PEAK flow. 2. Presumptive COVID-19. CRP, LDH, D dimer not elevated. F/u testing. C/w treatment above. Monitor closely. 3. DVT px. Lovenox DISPOSITION: Admitted under inpatient status. Plan is to discharge home when medically improved. VS, I&O, 24H, Scottiebone Vital Signs/I&O Vital Signs Date Time Temp Pulse Resp B/P (MAP) Pulse Ox O2 Delivery O2 Flow Rate FiO2 10/03/19 19:00 93 Room Air 10/03/19 16:00 97.1 88 17 136/84 (101) 93.0 Laboratory Data 24H LABS Laboratory Tests 2 10/03/19 03:46: Immature Granulocyte % (Auto) 0.2, Neutrophils (%) (Auto) 48.7, Lymphocytes (%) (Auto) 28.2, Monocytes (%) (Auto) 11.7H, Eosinophils (%) (Auto) 10.1H, Basophils (%) (Auto) 1.1H, Neutrophils # (Auto) 4.1, Lymphocytes # (Auto) 2.4, Monocytes # (Auto) 1.0H, Eosinophils # (Auto) 0.8H, Basophils # (Auto) 0.1, Nucleated Red Blood Cells % (auto) 0.0, Prothrombin Time 12.5, Prothromb Time International Ratio 0.96, Fibrinogen 411, D-Dimer, Quantitative 365.80, Blood Gas Bicarbonate Standard 20.1, Venous Blood pH 7.394, Venous Blood Partial Pressure CO2 30.2L, Venous Blood Partial Pressure O2 160.4H, Venous Blood Total Carbon Dioxide 19.0L, Venous Blood HCO3 18.0L, Venous Blood Oxygen Saturation 99.2H, Venous Blood Base Excess -5.4L, Anion Gap 7L, Glomerular Filtration Rate > 60.0, Calcium Level 9.7, Ferritin 32, Total Bilirubin 0.3, Direct Bilirubin < 0.1, Aspartate Amino Transf (AST/SGOT) 28, Alanine Aminotransferase (ALT/SGPT) 49, Alkaline Phosphatase 54, Lactate Dehydrogenase 179, Total Creatine Kinase 156, Creatine Kinase MB 3.7H, Creatine Kinase MB Relative Index 2.37, Troponin I < 0.02, C-Reactive Protein, Quantitative < 0.30, JW-Cxv-[id number]-Type Natriuretic Peptide 41, Total Protein 7.3, Albumin 3.7, Albumin/Globulin Ratio 1.03, Procalcitonin 0.02, Thyroid Stimulating Hormone (TSH) 3.530 10/03/19 03:48: POC Lactate (Misc Panel) 1.07 10/03/19 05:53: Lab Scanned Report LAB OTHER CBC/BMP Laboratory Tests 10/03/19 03:46 Microbiology Microbiology 10/03/19 Blood Culture, Received Pending 10/03/19 Blood Culture, Received Pending 10/03/19 Coronavirus COVID-19 PCR (DIANE), Received Pending 10/03/19 Respiratory Panel (PCR) - Final, Complete 10/03/19 Blood Culture, Received Pending Current Medications Current Medications Medications (Trade) Dose Ordered Sig/Meron Route PRN Reason Start Time Stop Time Status Last Admin Dose Admin Acetaminophen (Tylenol Tab) 650 mg Q4H PRN PO PAIN OR FEVER 10/03/19 06:00 Al Hydrox/Mg Hydrox/Simethicone (Mylanta) 30 ml DAILY PRN PO DYSPEPSIA 10/03/19 06:00 Albuterol Sulfate (Proventil, Ventolin Hfa) 4 puff Q1HP PRN INH SHORTNESS OF BREATH 10/03/19 06:00 10/03/19 06:26 DC Albuterol/ Ipratropium (Combivent Respimat 100-20mcg) 1 puff RQ6H INH 10/03/19 08:00 10/03/19 13:25 Albuterol/ Ipratropium (Combivent Respimat 100-20mcg) 2 puff Q20M PRN INH SHORTNESS OF BREATH 10/03/19 03:45 10/03/19 05:48 DC 10/03/19 05:48 Docusate Sodium (Colace) 100 mg BID PO 10/03/19 09:00 10/03/19 08:16 Enoxaparin Sodium (Lovenox) 40 mg DAILY SC 10/03/19 09:00 10/03/19 08:16 Home Med (Med Rec Complete!) ASDIRECTED XX 10/03/19 06:15 10/03/19 06:12 DC Labetalol HCl (Normodyne, Trandate) 10 mg STAT STAT IV 10/03/19 04:01 10/03/19 04:02 Cancel Levalbuterol HCl (Xopenex Hfa) 2 puff RQ4H PRN INH SHORTNESS OF BREATH 10/03/19 06:30 Pantoprazole Sodium (Protonix) 40 mg DAILY PO 10/03/19 09:00 10/03/19 08:16 Prednisone (Deltasone) 40 mg DAILY PO 10/03/19 09:00 10/03/19 08:16 Allergies Coded Allergies: SEASONAL ALLERGIES (Verified Allergy, Unknown, 09/23/10) Aranza Persaud MD Oct 03, 2019 20:20
[2019-10-04] MEDS: COMBIVENT RESPIMAT 100-20MCG INHALER 4GM INH SCH ×3 (01:36→13:09)
[2019-10-04 04:00] VITALS: BP 140/80
[2019-10-04 05:49] LABS: HEMATOCRIT 43.4 % (36.0-47.0); HEMOGLOBIN 14.6 g/dl (12.0-15.5); MEAN CORPUSCULAR HEMOGLOBIN 30.3 pg (27.0-33.0); MEAN CORPUSCULAR HGB CONC 33.6 g/dl (32.0-36.5); PLATELET COUNT, AUTOMATED 316 10^3/uL (150-450); RED BLOOD COUNT 4.82 10^6/uL (4.00-5.40); WHITE BLOOD COUNT 14.6 10^3/uL (4.0-10.0)
[2019-10-04 06:07] LABS: BLOOD UREA NITROGEN 12 MG/DL (7-18); CARBON DIOXIDE LEVEL 27 MEQ/L (21-32); CHLORIDE LEVEL 109 MEQ/L (98-107); CREATININE FOR GFR 0.75 MG/DL (0.55-1.30); GLOMERULAR FILTRATION RATE > 60.0 (>58); GLUCOSE, FASTING 87 MG/DL (70-100); POTASSIUM SERUM 4.1 MEQ/L (3.5-5.1); SODIUM LEVEL 142 MEQ/L (136-145)
[2019-10-04 07:00] VITALS: O2SAT 94
[2019-10-04 07:47] VITALS: BP 138/96
[2019-10-04 08:00] VITALS: O2SAT 94
[2019-10-04] MEDS: DOCUSATE SODIUM 100 MG CAP PO SCH (08:58)
[2019-10-04] MEDS: PANTOPRAZOLE 40MG TAB (PROTONIX) PO SCH (08:58)
[2019-10-04] MEDS: predniSONE 20 MG TAB PO SCH (08:58)
[2019-10-04] MEDS: ENOXAPARIN 40 MG/0.4 ML SYRINGE (J1650) SC SCH (08:58)
[2019-10-04 09:00] VITALS: O2SAT 97
[2019-10-04] MEDS ORDERED: PRED20TA PO (11:08)
[2019-10-04 12:00] VITALS: BP 130/90
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
--- NOTE | 2019-10-04 19:22 | ECGEPIP ---
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
== END 2019-10-04 14:08 | disposition home or self-care (01) | DRG 141 ==
LOC: M ED 03:17 → M ED INP 05:53 → ENRESERV 06:13 → M PCU 06:43
PROVIDERS: ADMIT Internal Medicine; ATTEND Internal Medicine
DX: J45.901 Unspecified asthma with (acute) exacerbation (principal); J44.1 Chronic obstructive pulmonary disease with (acute) exacerbation; F41.9 Anxiety disorder, unspecified; F32.9 Major depressive disorder, single episode, unspecified; F17.200 Nicotine dependence, unspecified, uncomplicated; Z11.59 Encounter for screening for other viral diseases

== ENCOUNTER 2019-11-01 00:52 | Emergency (ER) | payer OTHER ==
[~2019-11-01] VITALS: Ht 165.1 cm; Wt 81.8 kg
[~2019-11-01 00:52] MED LIST changes: +ACET-897 PO
[2019-11-01] MEDS ORDERED: methylPREDNISolone INJ 125 MG/2 ML VIAL (J2930) IV ONE (01:30)
[2019-11-01 01:37] LABS: BASO # 0.1 10^3/uL (0.0-0.2); BASO % 0.9 % (0.0-1.0); EOS # 0.6 10^3/uL (0.0-0.5); EOS % 9.5 % (0.0-3.0); HEMATOCRIT 44.1 % (36.0-47.0); HEMOGLOBIN 15.1 g/dl (12.0-15.5); LYMPH # 2.4 10^3/uL (1.5-5.0); LYMPH % 35.6 % (24.0-44.0); MEAN CORPUSCULAR HEMOGLOBIN 30.3 pg (27.0-33.0); MEAN CORPUSCULAR HGB CONC 34.2 g/dl (32.0-36.5); MEAN CORPUSCULAR VOLUME 88.6 fl (80.0-96.0); MONO # 0.8 10^3/uL (0.0-0.8); MONO % 11.3 % (0.0-5.0); NEUTROPHILS # 2.9 10^3/uL (1.5-8.5); NEUTROPHILS % 42.6 % (36.0-66.0); PLATELET COUNT, AUTOMATED 322 10^3/uL (150-450); RED BLOOD COUNT 4.98 10^6/uL (4.00-5.40); WHITE BLOOD COUNT 6.7 10^3/uL (4.0-10.0)
[2019-11-01] MEDS: COMBIVENT RESPIMAT 100-20MCG INHALER 4GM INH PRN ×2 (01:40→01:58)
[2019-11-01 02:02] LABS: ALBUMIN 3.5 GM/DL (3.2-5.2); ALT/SGPT 40 U/L (12-78); BILIRUBIN,DIRECT 0.2 MG/DL (0.0-0.2); BILIRUBIN,TOTAL 0.5 MG/DL (0.2-1.0); BLOOD UREA NITROGEN 8 MG/DL (7-18); CALCIUM LEVEL 8.7 MG/DL (8.5-10.1); CARBON DIOXIDE LEVEL 22 MEQ/L (21-32); CHLORIDE LEVEL 113 MEQ/L (98-107); CREATININE FOR GFR 0.62 MG/DL (0.55-1.30); GLOMERULAR FILTRATION RATE > 60.0 (>58); GLUCOSE, FASTING 99 MG/DL (70-100); POTASSIUM SERUM 3.9 MEQ/L (3.5-5.1); SODIUM LEVEL 142 MEQ/L (136-145); TOTAL PROTEIN 6.8 GM/DL (6.4-8.2)
[2019-11-01] MEDS ORDERED: PRED20TA PO (02:16)
[2019-11-01 02:30] VITALS: BP 151/83
--- NOTE | 2019-11-01 10:59 | REP ---
CHEST: REASON: Cough and dyspnea. COMPARISON: No priors. The technique utilized in obtaining the radiograph has magnified the cardiac silhouette and accentuated the interstitial markings. FINDINGS: The superior mediastinal structures are midline. The cardiac silhouette is unremarkable in size, shape, and position. The diaphragmatic surfaces of the lungs are regular, and the costophrenic angles are clear. The pulmonary simmons are clear. The imaged osseous structures are intact. IMPRESSION: There is no acute cardiopulmonary disease. Electronically Signed by Deacon Mcdowell DO 11/01/2019 12:57 P
--- NOTE | 2019-11-02 11:13 | ECGEPIP ---
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
== END 2019-11-01 02:37 | disposition home or self-care (01) ==
LOC: M ED 00:52
DX: J45.901 Unspecified asthma with (acute) exacerbation (principal); J44.9 Chronic obstructive pulmonary disease, unspecified; Z87.891 Personal history of nicotine dependence
CPT/HCPCS: 71045; 80048; 80076; 85025; 93005; 93041; 94760; 96374; 99285; J2930

== ENCOUNTER → 2019-11-21 | Outpatient (REF) | payer OTHER, MEDICAID ==
[2019-11-21 18:17] LABS: BASO # 0.1 10^3/uL (0.0-0.2); BASO % 1.3 % (0.0-1.0); EOS % 14.1 % (0.0-3.0); HEMATOCRIT 44.7 % (36.0-47.0); HEMOGLOBIN 15.3 g/dl (12.0-15.5); LYMPH # 2.6 10^3/uL (1.5-5.0); LYMPH % 37.7 % (24.0-44.0); MEAN CORPUSCULAR HEMOGLOBIN 30.5 pg (27.0-33.0); MEAN CORPUSCULAR HGB CONC 34.2 g/dl (32.0-36.5); MEAN CORPUSCULAR VOLUME 89.2 fl (80.0-96.0); MONO % 13.6 % (0.0-5.0); NEUTROPHILS # 2.3 10^3/uL (1.5-8.5); PLATELET COUNT, AUTOMATED 256 10^3/uL (150-450); RED BLOOD COUNT 5.01 10^6/uL (4.00-5.40)
[2019-11-21 18:30] LABS: ALBUMIN 3.6 GM/DL (3.2-5.2); ALT/SGPT 44 U/L (12-78); BILIRUBIN,TOTAL 0.6 MG/DL (0.2-1.0); BLOOD UREA NITROGEN 11 MG/DL (7-18); CALCIUM LEVEL 8.6 MG/DL (8.5-10.1); CARBON DIOXIDE LEVEL 24 MEQ/L (21-32); CHLORIDE LEVEL 113 MEQ/L (98-107); CHOLESTEROL LEVEL 157 MG/DL (<200); CHOLESTEROL RISK RATIO 2.962 (<5); CREATININE FOR GFR 0.78 MG/DL (0.55-1.30); FREE T4 1.38 NG/DL (0.76-1.46); GLOMERULAR FILTRATION RATE > 60.0 (>58); GLUCOSE, FASTING 97 MG/DL (70-100); HDL CHOLESTEROL 53 MG/DL (>40); LDL CHOLESTEROL 92 MG/DL (<100); NON-HDL-C 104 MG/DL; POTASSIUM SERUM 4.1 MEQ/L (3.5-5.1); SODIUM LEVEL 141 MEQ/L (136-145); THYROID STIMULATING HORMONE 0.691 uIU/ML (0.358-3.740); TOTAL 25(OH) VITAMIN D 18.7 NG/ML (30.0-100.0); TOTAL PROTEIN 6.9 GM/DL (6.4-8.2); TRIGLYCERIDES LEVEL 58 MG/DL (<150)
[2019-11-21 18:52] LABS: HEMOGLOBIN A1c 5.4 %
== END ==
LOC: M LAB REF 16:17
PROVIDERS: ATTEND Nurse Practitioner Family
DX: Z13.9 Encounter for screening, unspecified (principal); E66.9 Obesity, unspecified; J45.42 Moderate persistent asthma with status asthmaticus; F31.9 Bipolar disorder, unspecified

== ENCOUNTER 2020-08-20 17:59 | Emergency (ER) | payer OTHER, MEDICAID ==
[~2020-08-20] VITALS: Ht 165.1 cm; Wt 94.9 kg
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
[2020-08-20] MEDS ORDERED: FLUT1INH2 INH (18:06)
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
[2020-08-20] MEDS ORDERED: methylPREDNISolone 125MG 2ML VIAL IV ONE (19:45)
[2020-08-20] MEDS ORDERED: NS 1,000 ML IV ONE (19:45)
[2020-08-20 20:44] LABS: BASO # 0.1 10^3/uL (0.0-0.2); BASO % 0.6 % (0.0-1.0); EOS # 0.4 10^3/uL (0.0-0.5); EOS % 4.5 % (0.0-3.0); HEMATOCRIT 43.5 % (36.0-47.0); HEMOGLOBIN 14.7 g/dl (12.0-15.5); LYMPH # 1.6 10^3/uL (1.5-5.0); MEAN CORPUSCULAR HEMOGLOBIN 30.4 pg (27.0-33.0); MEAN CORPUSCULAR HGB CONC 33.8 g/dl (32.0-36.5); MEAN CORPUSCULAR VOLUME 90.1 fl (80.0-96.0); MONO # 0.8 10^3/uL (0.0-0.8); MONO % 8.2 % (2.0-8.0); NEUTROPHILS # 6.4 10^3/uL (1.5-8.5); NEUTROPHILS % 69.2 % (36.0-66.0); PLATELET COUNT, AUTOMATED 386 10^3/uL (150-450); RED BLOOD COUNT 4.83 10^6/uL (4.00-5.40); WHITE BLOOD COUNT 9.2 10^3/uL (4.0-10.0)
[2020-08-20 21:19] LABS: ALBUMIN 3.7 GM/DL (3.2-5.2); ALT/SGPT 39 U/L (12-78); BILIRUBIN,DIRECT < 0.1 MG/DL (0.0-0.2); BILIRUBIN,TOTAL 0.2 MG/DL (0.2-1.0); TOTAL PROTEIN 7.3 GM/DL (6.4-8.2)
[2020-08-20] MEDS: IPRATROPIUM 0.5MG/ALBUTEROL 2.5MG INH SOL UD 3ML (DUONEB) NEB PRN ×2 (21:19→21:22)
--- NOTE | 2020-08-20 22:20 | REPVR ---
PROCEDURE INFORMATION: Exam: XR Chest Exam date and time: 08/20/2020 9:45 PM Age: 44 years old Clinical indication: Other: Dyspnea/cough TECHNIQUE: Imaging protocol: XR of the chest Views: 2 views. COMPARISON: CR PORTABLE CHEST X-RAY 11/01/2019 1:48 AM FINDINGS: Lungs: Unremarkable. No consolidation. Pleural spaces: Unremarkable. No pleural effusion. No pneumothorax. Heart/Mediastinum: Unremarkable. No cardiomegaly. Bones/joints: Unremarkable. IMPRESSION: No acute findings. Electronically signed by: Christofer Briggs On 08/20/2020 22:20:37 PM
[2020-08-20] MEDS ORDERED: PRED20TA PO (22:46)
[2020-08-20 23:04] VITALS: BP 155/95
== END 2020-08-20 23:04 | disposition home or self-care (01) ==
LOC: M ED 17:59
DX: J45.901 Unspecified asthma with (acute) exacerbation (principal); Z87.891 Personal history of nicotine dependence; J30.2 Other seasonal allergic rhinitis
CPT/HCPCS: 71046; 80047; 80076; 84702; 85025; 94640; 96361; 96374; 99284; J2930

== ENCOUNTER 2020-10-31 21:18 | Emergency (ER) | payer OTHER, MEDICAID ==
[~2020-10-31] VITALS: Ht 165.1 cm; Wt 90.9 kg
[~2020-10-31 21:18] MED LIST changes: +FLUT1INH2 INH
[2020-10-31] MEDS ORDERED: ALBUTEROL SULFATE 2.5 MG/0.5 ML INH NEB SOLN INH ONE (21:45)
[2020-10-31] MEDS ORDERED: MAG SULF 1GM/100ML (MAG RUN) 1 GM in IV 1 EA IV ONE (21:45)
[2020-10-31] MEDS ORDERED: BUDESONIDE 0.5 MG/2 ML INHALATION SUSPENSION INH ONE (21:45)
[2020-10-31 21:51] LABS: VENOUS HCO3 22.9 MEQ/L (23.0-27.0); VENOUS O2 SATURATION 95.3 % (60.0-80.0); VENOUS PARTIAL PRESSURE CO2 35.9 mmHg (38.0-50.0); VENOUS PARTIAL PRESSURE O2 73.9 mmHg (30.0-50.0); VENOUS PH 7.422 UNITS (7.330-7.430); VENOUS STANDARD HCO3 23.6 MEQ/L
[2020-10-31 21:52] LABS: BASO # 0.1 10^3/uL (0.0-0.2); BASO % 0.9 % (0.0-1.0); EOS # 0.8 10^3/uL (0.0-0.5); EOS % 7.3 % (0.0-3.0); HEMATOCRIT 45.8 % (36.0-47.0); HEMOGLOBIN 15.7 g/dl (12.0-15.5); LYMPH # 3.4 10^3/uL (1.5-5.0); MEAN CORPUSCULAR HGB CONC 34.3 g/dl (32.0-36.5); MEAN CORPUSCULAR VOLUME 87.6 fl (80.0-96.0); MONO # 1.1 10^3/uL (0.0-0.8); MONO % 10.9 % (2.0-8.0); NEUTROPHILS # 4.9 10^3/uL (1.5-8.5); NEUTROPHILS % 47.6 % (36.0-66.0); PLATELET COUNT, AUTOMATED 356 10^3/uL (150-450); RED BLOOD COUNT 5.23 10^6/uL (4.00-5.40); WHITE BLOOD COUNT 10.3 10^3/uL (4.0-10.0)
[2020-10-31 22:21] LABS: ALBUMIN 3.9 GM/DL (3.2-5.2); ALT/SGPT 40 U/L (12-78); BILIRUBIN,DIRECT 0.1 MG/DL (0.0-0.2); BILIRUBIN,TOTAL 0.5 MG/DL (0.2-1.0); BLOOD UREA NITROGEN 6 MG/DL (7-18); CALCIUM LEVEL 10.3 MG/DL (8.5-10.1); CARBON DIOXIDE LEVEL 24 MEQ/L (21-32); CHLORIDE LEVEL 109 MEQ/L (98-107); CK-MB VALUE MASS 4.2 NG/ML (<3.6); CPK CREATINE PHOSPHOKINASE 217 U/L (26-192); CREATININE FOR GFR 0.69 MG/DL (0.55-1.30); GLOMERULAR FILTRATION RATE > 60.0 (>58); GLUCOSE, FASTING 110 MG/DL (70-100); MB/CK RELATIVE INDEX 1.94 (< OR =4); NT-PRO BNP 71 PG/ML (<125); SODIUM LEVEL 140 MEQ/L (136-145); TOTAL PROTEIN 7.5 GM/DL (6.4-8.2); TROPONIN I < 0.02 NG/ML (< 0.10)
--- NOTE | 2020-10-31 23:51 | REPVR ---
PROCEDURE INFORMATION: Exam: XR Chest Exam date and time: 10/31/2020 11:15 PM Age: 45 years old Clinical indication: Cough and dyspnea TECHNIQUE: Imaging protocol: XR of the chest. Views: 1 view. COMPARISON: CR Chest, 2 view PA, Lat 08/20/2020 9:38 PM FINDINGS: Lungs: Unremarkable. No consolidation. No pulmonary edema. Pleural spaces: Unremarkable. No pleural effusion. No pneumothorax. Heart/Mediastinum: Unremarkable. No cardiomegaly. Bones/joints: There is a mild S-shaped scoliosis of the thoracic spine. There are well corticated ossicles just above the distal end of the left clavicle, which are unchanged compared to the prior chest x-ray on 08/20/2020. IMPRESSION: No acute findings. Electronically signed by: Jose Russell On 10/31/2020 23:51:35 PM
[2020-11-01] MEDS ORDERED: PRED20TA PO (00:07)
[2020-11-01 00:12] VITALS: BP 133/86
--- NOTE | 2020-11-01 20:05 | ECGEPIP ---
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
== END 2020-11-01 00:22 | disposition home or self-care (01) ==
LOC: M ED 21:18
DX: J45.901 Unspecified asthma with (acute) exacerbation (principal); R00.0 Tachycardia, unspecified; J30.2 Other seasonal allergic rhinitis; Z79.899 Other long term (current) drug therapy
CPT/HCPCS: 71045; 80048; 80076; 82550; 82553; 82803; 83605; 83880; 85025; 87040; 87798; 93005; 93041; 94640; 96374; 99285; J3475

== ENCOUNTER 2021-02-07 05:09 | Emergency (ER) | payer OTHER, MEDICAID ==
[~2021-02-07] VITALS: Ht 165.1 cm; Wt 90.9 kg
[2021-02-07] MEDS ORDERED: ALBU8.5H (05:36)
--- NOTE | 2021-02-07 05:57 | ECGEPIP ---
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
[2021-02-07 06:05] LABS: BASO # 0.1 10^3/uL (0.0-0.2); BASO % 0.8 % (0.0-1.0); EOS # 0.1 10^3/uL (0.0-0.5); HEMATOCRIT 39.5 % (36.0-47.0); HEMOGLOBIN 13.4 g/dl (12.0-15.5); LYMPH # 1.7 10^3/uL (1.5-5.0); LYMPH % 24.1 % (24.0-44.0); MEAN CORPUSCULAR HEMOGLOBIN 30.1 pg (27.0-33.0); MEAN CORPUSCULAR HGB CONC 33.9 g/dl (32.0-36.5); MEAN CORPUSCULAR VOLUME 88.8 fl (80.0-96.0); MONO % 13.6 % (2.0-8.0); NEUTROPHILS # 4.2 10^3/uL (1.5-8.5); NEUTROPHILS % 58.8 % (36.0-66.0); PLATELET COUNT, AUTOMATED 249 10^3/uL (150-450); RED BLOOD COUNT 4.45 10^6/uL (4.00-5.40); WHITE BLOOD COUNT 7.1 10^3/uL (4.0-10.0)
[2021-02-07 06:30] LABS: ALBUMIN 3.2 GM/DL (3.2-5.2); ALT/SGPT 31 U/L (12-78); BILIRUBIN,DIRECT < 0.1 MG/DL (0.0-0.2); BILIRUBIN,TOTAL 0.3 MG/DL (0.2-1.0); BLOOD UREA NITROGEN 5 MG/DL (7-18); CALCIUM LEVEL 8.4 MG/DL (8.5-10.1); CARBON DIOXIDE LEVEL 20 MEQ/L (21-32); CHLORIDE LEVEL 115 MEQ/L (98-107); CREATININE FOR GFR 0.54 MG/DL (0.55-1.30); GLOMERULAR FILTRATION RATE > 60.0 (>58); GLUCOSE, FASTING 88 MG/DL (70-100); POTASSIUM SERUM 3.1 MEQ/L (3.5-5.1); SODIUM LEVEL 144 MEQ/L (136-145); TOTAL PROTEIN 6.1 GM/DL (6.4-8.2)
[2021-02-07] MEDS ORDERED: NS 1,000 ML IV ONE (06:30)
[2021-02-07] MEDS ORDERED: IPRATROPIUM HFA INHALER 12.9 GRAMS (ATROVENT HFA) INH ONE (06:30)
[2021-02-07] MEDS ORDERED: LEVALBUTEROL HFA 45MCG/ACT 15 GM INHALER INH ONE (06:30)
[2021-02-07] MEDS ORDERED: methylPREDNISolone 125MG 2ML VIAL IV ONE (06:30)
--- NOTE | 2021-02-07 06:46 | REPVR ---
PROCEDURE INFORMATION: Exam: XR Chest Exam date and time: 02/07/2021 5:56 AM Age: 45 years old Clinical indication: Cough and dyspnea; Additional info: Dyspnea/cough TECHNIQUE: Imaging protocol: XR of the chest. Views: 1 view. COMPARISON: CR PORTABLE CHEST X-RAY 10/31/2020 11:08 PM FINDINGS: Lungs: Unremarkable. No consolidation. Pleural spaces: Unremarkable. No pleural effusion. No pneumothorax. Heart/Mediastinum: Unremarkable. No cardiomegaly. Bones/joints: Unremarkable. EVENTRATION OF THE RIGHT DIAPHRAGM. IMPRESSION: No acute findings. Electronically signed by: Gillian Hall On 02/07/2021 06:45:35 AM
[2021-02-07 09:29] LABS: RSV AMPLIFICATION POSITIVE (NEGATIVE)
[2021-02-07] MEDS ORDERED: POTASSIUM CHLORIDE 10 MEQ SR TABLET PO ONE (09:30)
[2021-02-07] MEDS ORDERED: ONDANSETRON 4MG/2ML VIAL IV ONE (09:50)
[2021-02-07] MEDS ORDERED: PRED20TA PO (10:10)
[2021-02-07] MEDS ORDERED: ONDA4TAB6 PO (10:10)
[2021-02-07] MEDS ORDERED: IPRA0.00 NEB (10:10)
[2021-02-07 10:35] VITALS: BP 120/67
== END 2021-02-07 10:37 | disposition home or self-care (01) ==
LOC: M ED 07:07
DX: J20.5 Acute bronchitis due to respiratory syncytial virus (principal); J45.909 Unspecified asthma, uncomplicated; J30.2 Other seasonal allergic rhinitis; Z87.891 Personal history of nicotine dependence
CPT/HCPCS: 71045; 80048; 80076; 85025; 87631; 93005; 93041; 94640; 94760; 96361; 96374; 96375; 99285; J2405; J2930

== ENCOUNTER 2021-09-05 03:15 | Emergency (ER) | payer OTHER ==
[~2021-09-05] VITALS: Ht 165.1 cm; Wt 81.8 kg
[~2021-09-05 03:15] MED LIST changes: +ALBU8.5H; +FLUO-96 PO; -FLUO20CA20 PO; +ONDA4TAB6 PO
[2021-09-05 04:13] LABS: VENOUS HCO3 23.9 MEQ/L (23.0-27.0); VENOUS O2 SATURATION 97.1 % (60.0-80.0); VENOUS PARTIAL PRESSURE CO2 40.6 mmHg (38.0-50.0); VENOUS PARTIAL PRESSURE O2 87.5 mmHg (30.0-50.0); VENOUS PH 7.388 UNITS (7.330-7.430); VENOUS STANDARD HCO3 23.7 MEQ/L; VENOUS TOTAL CO2 25.2 MEQ/L (24.0-28.0)
[2021-09-05 04:23] LABS: BASO # 0.1 10^3/uL (0.0-0.2); BASO % 1.4 % (0.0-1.0); EOS # 0.9 10^3/uL (0.0-0.5); EOS % 13.9 % (0.0-3.0); HEMATOCRIT 43.5 % (36.0-47.0); HEMOGLOBIN 14.9 g/dl (12.0-15.5); LYMPH # 1.7 10^3/uL (1.5-5.0); LYMPH % 26.8 % (24.0-44.0); MEAN CORPUSCULAR HEMOGLOBIN 29.9 pg (27.0-33.0); MEAN CORPUSCULAR HGB CONC 34.3 g/dl (32.0-36.5); MEAN CORPUSCULAR VOLUME 87.2 fl (80.0-96.0); MONO # 0.6 10^3/uL (0.0-0.8); MONO % 9.8 % (2.0-8.0); NEUTROPHILS % 47.9 % (36.0-66.0); PLATELET COUNT, AUTOMATED 385 10^3/uL (150-450); RED BLOOD COUNT 4.99 10^6/uL (4.00-5.40); WHITE BLOOD COUNT 6.3 10^3/uL (4.0-10.0)
[2021-09-05 04:46] LABS: CK-MB VALUE MASS 2.4 NG/ML (<3.6); MB/CK RELATIVE INDEX 2.18 (< OR =4)
[2021-09-05 04:48] LABS: ALBUMIN 3.4 GM/DL (3.2-5.2); ALT/SGPT 75 U/L (12-78); BILIRUBIN,DIRECT 0.1 MG/DL (0.0-0.2); BILIRUBIN,TOTAL 0.2 MG/DL (0.2-1.0); BLOOD UREA NITROGEN 14 MG/DL (7-18); CALCIUM LEVEL 9.7 MG/DL (8.5-10.1); CARBON DIOXIDE LEVEL 25 MEQ/L (21-32); CHLORIDE LEVEL 111 MEQ/L (98-107); CREATININE FOR GFR 0.67 MG/DL (0.55-1.30); GLOMERULAR FILTRATION RATE > 60.0 (>58); GLUCOSE, FASTING 101 MG/DL (70-100); NT-PRO BNP 50 PG/ML (<125); POTASSIUM SERUM 4.5 MEQ/L (3.5-5.1); SODIUM LEVEL 141 MEQ/L (136-145); TOTAL PROTEIN 6.7 GM/DL (6.4-8.2)
[2021-09-05 05:50] LABS: CK-MB VALUE MASS 2.8 NG/ML (<3.6); MB/CK RELATIVE INDEX 2.64 (< OR =4)
[2021-09-05 06:00] VITALS: BP 134/83
[2021-09-05] MEDS ORDERED: PRED20TA PO (06:33)
[2021-09-05] MEDS ORDERED: methylPREDNISolone 125MG 2ML VIAL IV ONE (06:35)
== END 2021-09-05 07:05 | disposition home or self-care (01) ==
LOC: M ED 03:15 → EDBD 03:15 → M ED 07:05
DX: J44.1 Chronic obstructive pulmonary disease with (acute) exacerbation (principal); J30.2 Other seasonal allergic rhinitis; Z79.899 Other long term (current) drug therapy
CPT/HCPCS: 71045; 80048; 80076; 82550; 82553; 82803; 83605; 83880; 85025; 87040; 87798; 93005; 93041; 96374; 99285; J2930

== ENCOUNTER → 2022-04-04 | Outpatient (CLI) | payer OTHER ==
[~2022-04-04] MED LIST changes: +ALBU2.5V10 INH; +ALBU2.5V10 NEB; -ALBU83IN INH; -ALBU83IN NEB
== END ==
LOC: M PLAIMG 13:37
PROVIDERS: ATTEND Nurse Practitioner Family
DX: R05.9 Cough, unspecified (principal); K80.20 Calculus of gallbladder without cholecystitis without obstruction; I70.0 Atherosclerosis of aorta

== ENCOUNTER → 2023-01-29 | Day surgery (SDC) | payer OTHER ==
[~2023-01-29] VITALS: Ht 165.1 cm; Wt 93.0 kg
[~2023-01-29] MED LIST changes: -ALBU8.5H; +ALBU8.5H INH; +BSS IRRIG/VANCO(10MG)/TOBRA(5MG)/EPINEPH(1:1000-0.5CC)500ML BAG-ORONLY IR ONE; +BUDE10.7 INH; +CYCLOPENTOLATE 1% OPHTH SOLN 2ML BTL OD SCH; +INCR1INH INH; +LIDOCAINE 1% SDV 5ML VIAL As Ordered ONE; +LIDOCAINE 3.5 % 1ML OPHTH TOPICAL GEL OU ONE; +MIDAZOLAM INJ 2MG/2ML VIAL As Ordered ONE; +OFLOXACIN 0.3 % (OCUFLOX) OPTH SOL 5ML OD ONE; +PHENYLEPHRINE 10% OPHTH SOL 5ML OD PRN; +PHENYLEPHRINE 2.5% OPHTH SOL 2ML OD SCH; +SYMB16INH INH; +TROPICAMIDE 1% OPHTH SOLN 15ML OD SCH; +fentaNYL 100 MCG/2 ML INJECTION As Ordered ONE
[2023-01-29 08:17] VITALS: BP 133/83; TEMP 97.8; O2SAT 97
== END | disposition home or self-care (01) ==
LOC: M SDC 06:33
PROVIDERS: ATTEND Ophthalmology
DX: H25.11 Age-related nuclear cataract, right eye (principal); J45.909 Unspecified asthma, uncomplicated; Z87.891 Personal history of nicotine dependence; F41.9 Anxiety disorder, unspecified; F32.A Depression, unspecified; Z79.51 Long term (current) use of inhaled steroids
CPT/HCPCS: 66984; 81025; J2250; J3010; V2632

== ENCOUNTER 2023-02-05 06:14 | Day surgery (SDC) | payer OTHER ==
[~2023-02-05] VITALS: Ht 165.1 cm; Wt 92.8 kg
[~2023-02-05 06:14] MED LIST changes: -CYCLOPENTOLATE 1% OPHTH SOLN 2ML BTL OD SCH; +CYCLOPENTOLATE 1% OPHTH SOLN 2ML BTL OS SCH; -LIDOCAINE 1% SDV 5ML VIAL As Ordered ONE; -MIDAZOLAM INJ 2MG/2ML VIAL As Ordered ONE; -OFLOXACIN 0.3 % (OCUFLOX) OPTH SOL 5ML OD ONE; +OFLOXACIN 0.3 % (OCUFLOX) OPTH SOL 5ML OS ONE; -PHENYLEPHRINE 10% OPHTH SOL 5ML OD PRN; +PHENYLEPHRINE 10% OPHTH SOL 5ML OS PRN; -PHENYLEPHRINE 2.5% OPHTH SOL 2ML OD SCH; +PHENYLEPHRINE 2.5% OPHTH SOL 2ML OS SCH; -TROPICAMIDE 1% OPHTH SOLN 15ML OD SCH; +TROPICAMIDE 1% OPHTH SOLN 15ML OS SCH; -fentaNYL 100 MCG/2 ML INJECTION As Ordered ONE
[2023-02-05] MEDS ORDERED: MIDAZOLAM INJ 2MG/2ML VIAL As Ordered ONE (06:56)
[2023-02-05] MEDS ORDERED: fentaNYL 100 MCG/2 ML INJECTION As Ordered ONE (06:57)
[2023-02-05] MEDS ORDERED: LIDOCAINE 1% SDV 5ML VIAL As Ordered ONE (07:28)
[2023-02-05] MEDS ORDERED: DUOVISC (0.50ML VISCOAT/0.85ML PROVISC) OPHTH KIT As Ordered ONE (07:28)
[2023-02-05] MEDS ORDERED: CEFUROXIME 1MG/0.1ML INTRACAMERAL INJ As Ordered ONE (07:29)
[2023-02-05 08:31] VITALS: BP 134/75; TEMP 97.6; O2SAT 100
== END 2023-02-05 08:49 | disposition home or self-care (01) ==
LOC: M SDC 06:14
PROVIDERS: ATTEND Ophthalmology
DX: H25.12 Age-related nuclear cataract, left eye (principal); J45.909 Unspecified asthma, uncomplicated; F41.9 Anxiety disorder, unspecified; F32.A Depression, unspecified; J30.2 Other seasonal allergic rhinitis; Z87.891 Personal history of nicotine dependence; Z79.51 Long term (current) use of inhaled steroids
CPT/HCPCS: 66984; J0697; J2250; J3010; V2632

== ENCOUNTER → 2023-10-19 | Outpatient (CLI) | payer OTHER ==
[~2023-10-19] MED LIST changes: -BSS IRRIG/VANCO(10MG)/TOBRA(5MG)/EPINEPH(1:1000-0.5CC)500ML BAG-ORONLY IR ONE; -CYCLOPENTOLATE 1% OPHTH SOLN 2ML BTL OS SCH; -LIDOCAINE 3.5 % 1ML OPHTH TOPICAL GEL OU ONE; -OFLOXACIN 0.3 % (OCUFLOX) OPTH SOL 5ML OS ONE; -PHENYLEPHRINE 10% OPHTH SOL 5ML OS PRN; -PHENYLEPHRINE 2.5% OPHTH SOL 2ML OS SCH; -TROPICAMIDE 1% OPHTH SOLN 15ML OS SCH
== END ==
LOC: M RAD 14:48
PROVIDERS: ATTEND Nurse Practitioner Family
DX: Z12.2 Encounter for screening for malignant neoplasm of respiratory organs (principal); Z87.891 Personal history of nicotine dependence